=== PATIENT | male | born 1970 | race African-American/Black ===

== ENCOUNTER 2018-12-05 10:09 | Inpatient (IN) | payer MEDICAID ==
[~2018-12-05] VITALS: Ht 180.3 cm; Wt 56.2 kg
[2018-12-05] VITALS (33 sets, daily range): BP systolic 33–154; BP diastolic 17–101
[2018-12-05] MEDS ORDERED: SODIUM CHLORIDE 0.9% 1,000 ML IV ONE ×2 (10:30→12:15)
[2018-12-05 11:51] LABS: MEAN CORPUSCULAR HEMOGLOBIN 18.6 pg (28.0-32.0); MEAN CORPUSCULAR VOLUME 66.8 fL (80.0-94.0); MEAN PLATELET VOLUME 6.9 fl (7.4-10.4); PLATELET 665 x1000/uL (130-400); RED CELL DISTRIBUTION WIDTH 17.4 % (11.6-14.6)
[2018-12-05 11:54] LABS: CHLORIDE 113 mEq/L (98-107)
[2018-12-05 11:56] LABS: HEMATOCRIT. 17.4 % (42.0-52.0); HEMOGLOBIN. 4.8 g/dL (14.0-18.0)
[2018-12-05 11:58] LABS: ETHANOL BLOOD < 10 mg/dL
[2018-12-05 12:15] LABS: CLARITY URINE CLEAR (CLEAR); COLOR URINE YELLOW (YELLOW); KETONES URINE 2+ (NEGATIVE); LEUKOCYTE ESTERASE URINE NEGATIVE (NEGATIVE); NITRITE URINE NEGATIVE (NEGATIVE); OCCULT BLOOD URINE TRACE (NEGATIVE); PROTEIN URINE NEGATIVE (NEGATIVE); SPECIFIC GRAVITY URINE 1.021 (1.005-1.030); UROBILINOGEN URINE 0.2 E.U./dL (0.2-1.0)
[2018-12-05] MEDS ORDERED: INSULIN REGULAR (DRIP) 100 UNITS in SODIUM CHLORIDE 0.9% 100 ML IV ONE (12:15)
[2018-12-05] MEDS ORDERED: SODIUM BICARBONATE 8.4% 1 MEQ/ML 50ML SYR IV ONE (12:15)
[2018-12-05] MEDS ORDERED: CALCIUM GLUCONATE 1,000 MG in DEXT 5% WATER 100 ML IV ONE (12:15)
[2018-12-05] MEDS ORDERED: ALBUTEROL (0.083%) 2.5MG/3ML NEB HHN ONE (12:15)
[2018-12-05 12:25] LABS: PLATELET ESTIMATE INCREASED
[2018-12-05] MEDS ORDERED: INSULIN REGULAR (DRIP) 100 UNITS in SODIUM CHLORIDE 0.9% 99 ML IV ONE (12:30)
[2018-12-05 12:40] LABS: *AMPHETAMINES SCREEN URINE NEGATIVE (NEGATIVE)
[2018-12-05 12:41] LABS: *BARBITURATES SCREEN URINE NEGATIVE (NEGATIVE); *BENZODIAZEPINES SCREEN URINE NEGATIVE (NEGATIVE); *COCAINE SCREEN URINE NEGATIVE (NEGATIVE); CANNABINOID URINE SCREEN NEGATIVE (NEGATIVE); METHADONE URINE SCREEN NEGATIVE (NEGATIVE); OPIATES URINE SCREEN NEGATIVE (NEGATIVE); PHENCYCLIDINE URINE SCREEN NEGATIVE (NEGATIVE)
[2018-12-05] MEDS ORDERED: SODIUM CHLORIDE 0.9% 1,000 ML IV SCH (14:45)
[2018-12-05] MEDS ORDERED: ACETAMINOPHEN 325MG TABLET PO PRN (14:45)
[2018-12-05] MEDS ORDERED: SODIUM BICARBONATE 8.4% 1 MEQ/ML 50ML SYR IV NR ×3 (15:05→17:15)
[2018-12-05 15:21] LABS: BG FRACTION INSPIRED OXYGEN 21; BG HCO3 ACT 5.4 mmol/L (22.0-26.0); BG PCO2 17.6 mmHg (35.0-45.0); BG PH 7.107 (7.350-7.450); BG PO2 152.7 mmHg (75.0-100.0); BG SAMPLE SITE RIGHT BRACHIAL; BG TOTAL HEMOGLOBIN < 4.5 g/dL (12.0-18.0); BG VENT MODE ROOM AIR
[2018-12-05] MEDS ORDERED: LIDOCAINE HCL 1% 20ML VIAL (Pyxis) INJ ONE (15:21)
[2018-12-05] MEDS ORDERED: SODIUM BICARBONATE 4% (2.4MEQ) 5ML VIAL IV ONE (15:21)
[2018-12-05] MEDS ORDERED: NOREPINEPHRINE 8 MG in DEXT 5% WATER 242 ML IV PRN (15:30)
[2018-12-05] MEDS ORDERED: DEXTROSE 50% WATER 50ML SYRINGE IV PRN (15:45)
[2018-12-05] MEDS: INSULIN REGULAR (DRIP) 100 UNITS in SODIUM CHLORIDE 0.9% 99 ML IV SCH ×2 (16:07→21:30)
[2018-12-05 16:31] LABS: PHOSPHORUS 7.3 mg/dL (2.5-4.9)
[2018-12-05] MEDS: BLOOD SUGAR DIAGNOSTIC STRIP TEST SCH ×7 (16:47→23:00)
[2018-12-05] MEDS ORDERED: ALBUTEROL (0.083%) 2.5MG/3ML NEB HHN NR (17:00)
[2018-12-05] MEDS ORDERED: PIPERACILLIN/TAZOBACTAM 3.375 G in DEXT 5% WATER 100 ML IV SCH (17:00)
[2018-12-05] MEDS ORDERED: WATER FOR IRRIGATION STERILE IV SCH (17:15)
[2018-12-05] MEDS ORDERED: SODIUM BICARBONATE IV SCH (17:15)
[2018-12-05] MEDS ORDERED: CALCIUM GLUCONATE 100MG/ML 10ML VIAL IV NR (18:00)
[2018-12-05] MEDS: SODIUM BICARBONATE 150 MEQ in WATER FOR INJECTION,STERILE 1,000 ML IV SCH (18:23)
[2018-12-05] MEDS: PIPERACILLIN/TAZOBACTAM 2.25 G in DEXTROSE 5% WATER 50 ML IV SCH (18:23)
[2018-12-05] MEDS: ONDANSETRON HCL 4MG/2ML INJ IV PRN (18:23)
[2018-12-05] MEDS ORDERED: SODIUM POLYSTYRENE SULFONATE 15 G/60 ML BOT PO NR (18:30)
[2018-12-05] MEDS ORDERED: VANCOMYCIN 1250MG in DEXTROSE 5% WATER 250ML IV SCH (20:00)
[2018-12-05] MEDS: MORPHINE SULFATE 2 MG/ML CPJ (NOT FOR IM USE) IV PRN (22:28)
[2018-12-06] VITALS (52 sets, daily range): BP systolic 64–140; BP diastolic 15–105
[2018-12-06] MEDS: PIPERACILLIN/TAZOBACTAM 2.25 G in DEXTROSE 5% WATER 50 ML IV SCH ×4 (00:27→17:40)
[2018-12-06] MEDS: BLOOD SUGAR DIAGNOSTIC STRIP TEST SCH ×10 (00:27→20:17)
[2018-12-06] MEDS: SODIUM BICARBONATE 150 MEQ in WATER FOR INJECTION,STERILE 1,000 ML IV SCH (00:27)
[2018-12-06] MEDS: INSULIN REGULAR (DRIP) 100 UNITS in SODIUM CHLORIDE 0.9% 99 ML IV SCH (01:42)
[2018-12-06] MEDS: ONDANSETRON HCL 4MG/2ML INJ IV PRN (04:12)
[2018-12-06] MEDS ORDERED: LORAZEPAM 2MG/ML CPJ IV PRN (05:15)
[2018-12-06] MEDS ORDERED: DEXTROSE 50% WATER 50ML SYRINGE IV PRN (05:15)
[2018-12-06] MEDS: MORPHINE SULFATE 2 MG/ML CPJ (NOT FOR IM USE) IV PRN (05:32)
[2018-12-06] MEDS ORDERED: FLUMAZENIL 0.1 MG/ML 5ML VIAL IV ONE ×2 (06:17→06:30)
[2018-12-06 07:28] LABS: HEMATOCRIT. 21.6 % (42.0-52.0); HEMOGLOBIN. 7.1 g/dL (14.0-18.0); MEAN CORPUSCULAR HEMOGLOBIN 22.1 pg (28.0-32.0); MEAN CORPUSCULAR VOLUME 67.5 fL (80.0-94.0); MEAN PLATELET VOLUME 6.7 fl (7.4-10.4); PLATELET 554 x1000/uL (130-400)
[2018-12-06 07:40] LABS: PHOSPHORUS 3.9 mg/dL (2.5-4.9)
[2018-12-06 07:46] LABS: CREATINE KINASE MB FRACTION 19.1 ng/mL (0.5-3.6)
[2018-12-06] MEDS ORDERED: INSULIN LISPRO 100 UNITS/ML SUBCUT SCH (07:50)
[2018-12-06] MEDS ORDERED: BLOOD SUGAR DIAGNOSTIC STRIP TEST SCH (07:50)
[2018-12-06] MEDS ORDERED: PANTOPRAZOLE 40MG DR TABLET PO SCH (07:50)
[2018-12-06] MEDS: INSULIN LISPRO 100 UNITS/ML SUBCUT SCH ×4 (08:00→20:22)
[2018-12-06] MEDS ORDERED: IPRATROPIUM/ALBUTEROL 0.5-3(2.5)MG/3ML NEB HHN PRN (08:15)
[2018-12-06] MEDS: DEXT 5%/0.45% NACL 1000ML 1,000 ML IV SCH ×3 (08:29→20:58)
[2018-12-06] MEDS: FAMOTIDINE 20MG/2ML VIAL IV SCH (08:33)
[2018-12-06 08:49] LABS: BG BASE EXCESS 6.5 mmol/L (-2.0-2.0); BG CARBOXYHEMOGLOBIN 0.7 % (0.5-1.5); BG DEOXYHEMOGLOBIN 19.6 % (0.0-5.0); BG FRACTION INSPIRED OXYGEN 21; BG HCO3 ACT 33.9 mmol/L (22.0-26.0); BG METHEMOGLOBIN 0.1 % (0.0-1.5); BG OXYGEN SATURATION 80.2 % (92.0-98.5); BG OXYHEMOGLOBIN 79.6 % (94.0-97.0); BG PCO2 67.7 mmHg (35.0-45.0); BG PH 7.318 (7.350-7.450); BG PO2 47.5 mmHg (75.0-100.0); BG SAMPLE SITE RIGHT BRACHIAL; BG TOTAL HEMOGLOBIN 8.9 g/dL (12.0-18.0); BG VENT MODE ROOM AIR
[2018-12-06] MEDS ORDERED: NALOXONE HCL 0.4 MG/ML 1ML VIAL IV SCH (09:00)
[2018-12-06] MEDS ORDERED: ASCORBIC ACID 500 MG TABLET PO SCH (09:45)
[2018-12-06] MEDS: ASCORBIC ACID 500 MG TABLET PO SCH ×3 (09:46→18:20)
[2018-12-06 10:07] LABS: NUCLEATED RED BLOOD CELLS 1 /100 WBC
[2018-12-06 10:10] LABS: PLATELET ESTIMATE SLIGHTLY INCREASED
[2018-12-06] MEDS: INSULIN GLARGINE UD 100 UNITS/ML SYR SUBCUT SCH ×2 (11:54→22:05)
[2018-12-06] MEDS: FERROUS SULFATE 325MG TABLET PO SCH ×2 (12:26→18:20)
[2018-12-06 15:00] LABS: BG CARBOXYHEMOGLOBIN 0.3 % (0.5-1.5); BG DEOXYHEMOGLOBIN 2.1 % (0.0-5.0); BG FRACTION INSPIRED OXYGEN 36; BG HCO3 ACT 32.5 mmol/L (22.0-26.0); BG METHEMOGLOBIN 0.1 % (0.0-1.5); BG OXYGEN SATURATION 97.9 % (92.0-98.5); BG OXYHEMOGLOBIN 97.5 % (94.0-97.0); BG PCO2 59.7 mmHg (35.0-45.0); BG PH 7.354 (7.350-7.450); BG PO2 142.7 mmHg (75.0-100.0); BG SAMPLE SITE RIGHT BRACHIAL; BG TOTAL HEMOGLOBIN 8.7 g/dL (12.0-18.0); BG VENT MODE NASAL CANNULA
[2018-12-06] MEDS ORDERED: NALOXONE HCL 0.4 MG/ML 1ML VIAL IV NR (15:00)
[2018-12-06] MEDS: VANCOMYCIN 500 MG PREMIX 100 ML IV SCH (15:34)
[2018-12-06 16:54] LABS: HEMATOCRIT 25.7 % (42.0-52.0); HEMOGLOBIN 8.5 g/dL (14.0-18.0)
[2018-12-07] VITALS (24 sets, daily range): BP systolic 90–118; BP diastolic 49–75
[2018-12-07] MEDS: PIPERACILLIN/TAZOBACTAM 2.25 G in DEXTROSE 5% WATER 50 ML IV SCH ×5 (00:06→23:42)
[2018-12-07] MEDS: BLOOD SUGAR DIAGNOSTIC STRIP TEST SCH ×7 (00:07→23:43)
[2018-12-07] MEDS: VANCOMYCIN 500 MG PREMIX 100 ML IV SCH (03:05)
[2018-12-07] MEDS: INSULIN LISPRO 100 UNITS/ML SUBCUT SCH ×7 (04:00→23:43)
[2018-12-07] MEDS: DEXT 5%/0.45% NACL 1000ML 1,000 ML IV SCH ×2 (05:04→12:54)
[2018-12-07 05:34] LABS: HEMATOCRIT. 24.1 % (42.0-52.0); HEMOGLOBIN. 7.8 g/dL (14.0-18.0); MEAN CORPUSCULAR HEMOGLOBIN 22.8 pg (28.0-32.0); MEAN CORPUSCULAR VOLUME 70.7 fL (80.0-94.0); MEAN PLATELET VOLUME 6.6 fl (7.4-10.4); PLATELET 362 x1000/uL (130-400); RED BLOOD CELL COUNT 3.41 mill/uL (4.7-6.1); RED CELL DISTRIBUTION WIDTH 25.9 % (11.6-14.6)
[2018-12-07] MEDS: FERROUS SULFATE 325MG TABLET PO SCH ×4 (08:04→17:20)
[2018-12-07] MEDS: DEXTROSE 50% WATER 50ML SYRINGE IV PRN ×3 (08:04→17:20)
[2018-12-07] MEDS: ASCORBIC ACID 500 MG TABLET PO SCH ×4 (08:04→17:19)
[2018-12-07] MEDS: FAMOTIDINE 20MG/2ML VIAL IV SCH (08:04)
[2018-12-07] MEDS: INSULIN GLARGINE UD 100 UNITS/ML SYR SUBCUT SCH ×2 (11:28→22:00)
[2018-12-07 13:34] LABS: HEMATOCRIT 26.9 % (42.0-52.0); HEMOGLOBIN 8.7 g/dL (14.0-18.0); MEAN CORPUSCULAR VOLUME 71.3 fL (80.0-94.0); PLATELET 345 x1000/uL (130-400); RED BLOOD CELL COUNT 3.77 mill/uL (4.7-6.1); RED CELL DISTRIBUTION WIDTH 25.5 % (11.6-14.6)
[2018-12-07 13:41] LABS: CHLORIDE 119 mEq/L (98-107)
[2018-12-07 14:13] LABS: PLATELET ESTIMATE NORMAL
[2018-12-07] MEDS: DEXT 10%/0.45% NACL 1,000 ML IV SCH ×2 (14:34→23:43)
[2018-12-07] MEDS: VANCOMYCIN HCL 1000 MG/20 ML ORAL PO SCH ×2 (17:20→23:43)
[2018-12-07] MEDS: VANCOMYCIN 750 MG PREMIX 150 ML IV SCH (17:20)
[2018-12-08] VITALS (28 sets, daily range): BP systolic 87–164; BP diastolic 51–104
[2018-12-08] MEDS: INSULIN LISPRO 100 UNITS/ML SUBCUT SCH ×5 (04:00→20:00)
[2018-12-08] MEDS: BLOOD SUGAR DIAGNOSTIC STRIP TEST SCH ×5 (04:47→20:00)
[2018-12-08 05:12] LABS: HEMATOCRIT. 25.7 % (42.0-52.0); HEMOGLOBIN. 8.3 g/dL (14.0-18.0); MEAN CORPUSCULAR HEMOGLOBIN 22.9 pg (28.0-32.0); MEAN CORPUSCULAR VOLUME 70.9 fL (80.0-94.0); MEAN PLATELET VOLUME 6.6 fl (7.4-10.4); PLATELET 322 x1000/uL (130-400); RED BLOOD CELL COUNT 3.63 mill/uL (4.7-6.1); RED CELL DISTRIBUTION WIDTH 25.8 % (11.6-14.6)
[2018-12-08 05:19] LABS: CHLORIDE 116 mEq/L (98-107)
[2018-12-08 05:26] LABS: PHOSPHORUS 3.9 mg/dL (2.5-4.9)
[2018-12-08] MEDS: VANCOMYCIN HCL 1000 MG/20 ML ORAL PO SCH ×3 (05:28→21:10)
[2018-12-08] MEDS: PIPERACILLIN/TAZOBACTAM 2.25 G in DEXTROSE 5% WATER 50 ML IV SCH ×3 (05:28→17:21)
[2018-12-08 07:29] LABS: NUCLEATED RED BLOOD CELLS 1 /100 WBC; PLATELET ESTIMATE NORMAL
[2018-12-08] MEDS: DEXTROSE 50% WATER 50ML SYRINGE IV PRN ×2 (08:00→21:06)
[2018-12-08] MEDS: ASCORBIC ACID 500 MG TABLET PO SCH ×3 (08:14→17:17)
[2018-12-08] MEDS: FERROUS SULFATE 325MG TABLET PO SCH ×3 (08:14→17:16)
[2018-12-08] MEDS: FAMOTIDINE 20MG/2ML VIAL IV SCH (08:14)
[2018-12-08 08:24] LABS: BG BASE EXCESS 3.6 mmol/L (-2.0-2.0); BG CARBOXYHEMOGLOBIN 0.2 % (0.5-1.5); BG DEOXYHEMOGLOBIN 10.6 % (0.0-5.0); BG FRACTION INSPIRED OXYGEN 36; BG HCO3 ACT 29.3 mmol/L (22.0-26.0); BG METHEMOGLOBIN 0.1 % (0.0-1.5); BG OXYGEN SATURATION 89.4 % (92.0-98.5); BG OXYHEMOGLOBIN 89.1 % (94.0-97.0); BG PCO2 51.1 mmHg (35.0-45.0); BG PH 7.376 (7.350-7.450); BG PO2 58.6 mmHg (75.0-100.0); BG SAMPLE SITE RIGHT RADIAL; BG TOTAL HEMOGLOBIN 7.8 g/dL (12.0-18.0); BG VENT MODE NASAL CANNULA
[2018-12-08] MEDS ORDERED: LIDOCAINE HCL/EPINEPHRINE 1%-EPI 1:100,000 30 ML VIAL INFIL SCH (09:00)
[2018-12-08] MEDS ORDERED: LIDOCAINE HCL/EPINEPHRINE 1%-EPI 1:100,000 20 ML VIAL INFIL SCH (09:10)
[2018-12-08] MEDS: INSULIN GLARGINE UD 100 UNITS/ML SYR SUBCUT SCH ×2 (09:49→22:30)
[2018-12-08] MEDS: DEXT 10%/0.45% NACL 1,000 ML IV SCH ×2 (10:44→21:11)
[2018-12-08] MEDS: VANCOMYCIN 750 MG PREMIX 150 ML IV SCH (12:30)
[2018-12-09] VITALS: BP 162/99
[2018-12-09] MEDS: PIPERACILLIN/TAZOBACTAM 2.25 G in DEXTROSE 5% WATER 50 ML IV SCH ×4 (00:44→18:08)
[2018-12-09] MEDS: VANCOMYCIN HCL 1000 MG/20 ML ORAL PO SCH ×4 (00:44→18:09)
[2018-12-09 04:00] VITALS: BP 134/87
[2018-12-09] MEDS: INSULIN LISPRO 100 UNITS/ML SUBCUT SCH ×6 (04:00→20:00)
[2018-12-09] MEDS: BLOOD SUGAR DIAGNOSTIC STRIP TEST SCH ×6 (04:00→20:00)
[2018-12-09 04:17] LABS: HEMATOCRIT. 24.1 % (42.0-52.0); HEMOGLOBIN. 7.7 g/dL (14.0-18.0); MEAN CORPUSCULAR HEMOGLOBIN 22.7 pg (28.0-32.0); MEAN CORPUSCULAR VOLUME 70.9 fL (80.0-94.0); MEAN PLATELET VOLUME 6.6 fl (7.4-10.4); PLATELET 207 x1000/uL (130-400); RED CELL DISTRIBUTION WIDTH 26.2 % (11.6-14.6)
[2018-12-09 04:23] LABS: CHLORIDE 117 mEq/L (98-107)
[2018-12-09 04:29] LABS: PHOSPHORUS 2.8 mg/dL (2.5-4.9)
[2018-12-09 04:32] LABS: VANCOMYCIN TROUGH 27.1 ug/mL (5.0-10.0)
[2018-12-09] MEDS: DEXT 10%/0.45% NACL 1,000 ML IV SCH (06:21)
[2018-12-09] MEDS: VANCOMYCIN 750 MG PREMIX 150 ML IV SCH (06:27)
[2018-12-09] MEDS: ASCORBIC ACID 500 MG TABLET PO SCH ×3 (07:50→18:09)
[2018-12-09] MEDS: FERROUS SULFATE 325MG TABLET PO SCH ×3 (07:50→18:08)
[2018-12-09 08:00] VITALS: BP 143/87
[2018-12-09] MEDS: INSULIN GLARGINE UD 100 UNITS/ML SYR SUBCUT SCH ×2 (09:01→22:00)
[2018-12-09] MEDS: FAMOTIDINE 20MG/2ML VIAL IV SCH (09:02)
[2018-12-09 10:03] LABS: PLATELET ESTIMATE NORMAL
[2018-12-09 12:00] VITALS: BP 198/90
[2018-12-09] MEDS ORDERED: DEXTROSE 10% WATER 500 ML IV ONE (13:00)
[2018-12-09] MEDS ORDERED: CLONIDINE 0.1MG TABLET PO PRN (14:45)
[2018-12-09] MEDS: AMLODIPINE 10MG TABLET PO SCH (14:59)
[2018-12-09 16:00] VITALS: BP 137/85
[2018-12-09 20:29] VITALS: BP 113/72
[2018-12-10] VITALS: BP 137/85
[2018-12-10] MEDS: VANCOMYCIN HCL 1000 MG/20 ML ORAL PO SCH ×4 (00:40→18:50)
[2018-12-10] MEDS: PIPERACILLIN/TAZOBACTAM 2.25 G in DEXTROSE 5% WATER 50 ML IV SCH ×2 (00:40→05:16)
[2018-12-10] MEDS: BLOOD SUGAR DIAGNOSTIC STRIP TEST SCH ×6 (00:40→20:00)
[2018-12-10] MEDS: INSULIN LISPRO 100 UNITS/ML SUBCUT SCH ×6 (00:48→20:00)
[2018-12-10 04:00] VITALS: BP 134/85
[2018-12-10 06:49] LABS: BASOPHILS % 0.2 % (0.0-2.0); EOSINOPHILS % 1.7 % (0.0-5.0); HEMATOCRIT. 24.2 % (42.0-52.0); HEMOGLOBIN. 7.8 g/dL (14.0-18.0); LYMPHOCYTES % 7.1 % (20.0-50.0); MEAN CORPUSCULAR HEMOGLOBIN 22.9 pg (28.0-32.0); MEAN CORPUSCULAR VOLUME 70.8 fL (80.0-94.0); MEAN PLATELET VOLUME 8.2 fl (7.4-10.4); MONOCYTES % 2.2 % (2.0-8.0); NEUTROPHILS % 88.8 % (40.0-76.0); PLATELET 194 x1000/uL (130-400); RED BLOOD CELL COUNT 3.41 mill/uL (4.7-6.1); RED CELL DISTRIBUTION WIDTH 25.6 % (11.6-14.6)
[2018-12-10 07:08] LABS: PHOSPHORUS 2.6 mg/dL (2.5-4.9)
[2018-12-10] MEDS: FERROUS SULFATE 325MG TABLET PO SCH ×3 (08:45→16:51)
[2018-12-10] MEDS: ASCORBIC ACID 500 MG TABLET PO SCH ×3 (08:45→16:50)
[2018-12-10] MEDS: VANCOMYCIN 750 MG PREMIX 150 ML IV SCH (08:46)
[2018-12-10] MEDS: AMLODIPINE 10MG TABLET PO SCH (08:46)
[2018-12-10] MEDS: FAMOTIDINE 20MG/2ML VIAL IV SCH (08:46)
[2018-12-10 08:50] VITALS: BP 129/85
[2018-12-10] MEDS: INSULIN GLARGINE UD 100 UNITS/ML SYR SUBCUT SCH ×2 (10:00→22:40)
[2018-12-10 12:33] VITALS: BP 125/81
[2018-12-10 16:10] VITALS: BP 128/90
[2018-12-10] MEDS: METRONIDAZOLE 500 MG PREMIX 100 ML IV SCH (16:51)
[2018-12-10 20:21] VITALS: BP 99/66
[2018-12-11] MEDS: BLOOD SUGAR DIAGNOSTIC STRIP TEST SCH ×6 (00:05→20:00)
[2018-12-11] MEDS: VANCOMYCIN HCL 1000 MG/20 ML ORAL PO SCH ×4 (00:05→18:12)
[2018-12-11 00:15] VITALS: BP 111/64
[2018-12-11] MEDS: INSULIN LISPRO 100 UNITS/ML SUBCUT SCH ×6 (00:21→22:02)
[2018-12-11] MEDS: METRONIDAZOLE 500 MG PREMIX 100 ML IV SCH ×3 (02:50→18:05)
[2018-12-11 04:00] VITALS: BP 109/68
[2018-12-11 07:53] LABS: BASOPHILS % 0.4 % (0.0-2.0); EOSINOPHILS % 2.4 % (0.0-5.0); HEMATOCRIT. 22.4 % (42.0-52.0); HEMOGLOBIN. 7.1 g/dL (14.0-18.0); LYMPHOCYTES % 12.2 % (20.0-50.0); MEAN CORPUSCULAR HEMOGLOBIN 22.5 pg (28.0-32.0); MEAN CORPUSCULAR VOLUME 70.7 fL (80.0-94.0); MEAN PLATELET VOLUME 8.2 fl (7.4-10.4); MONOCYTES % 6.8 % (2.0-8.0); NEUTROPHILS % 78.2 % (40.0-76.0); PLATELET 187 x1000/uL (130-400); RED BLOOD CELL COUNT 3.17 mill/uL (4.7-6.1); RED CELL DISTRIBUTION WIDTH 26.6 % (11.6-14.6)
[2018-12-11 08:06] LABS: PHOSPHORUS 2.3 mg/dL (2.5-4.9)
[2018-12-11 08:14] VITALS: BP 125/79
[2018-12-11] MEDS: FERROUS SULFATE 325MG TABLET PO SCH ×3 (10:42→17:54)
[2018-12-11] MEDS: ASCORBIC ACID 500 MG TABLET PO SCH ×3 (10:43→17:54)
[2018-12-11] MEDS: FAMOTIDINE 20MG/2ML VIAL IV SCH (10:43)
[2018-12-11] MEDS: AMLODIPINE 10MG TABLET PO SCH (10:44)
[2018-12-11] MEDS: INSULIN GLARGINE UD 100 UNITS/ML SYR SUBCUT SCH ×2 (10:46→22:01)
[2018-12-11] MEDS: VANCOMYCIN 750 MG PREMIX 150 ML IV SCH (10:46)
[2018-12-11 12:12] VITALS: BP 138/90
[2018-12-11] MEDS ORDERED: POTASSIUM PHOS,M-BASIC-D-BASIC 15 MMOL in DEXT 5% WATER 245 ML IV SCH (15:30)
[2018-12-11 16:00] VITALS: BP 117/69
[2018-12-11 20:52] VITALS: BP 138/81
[2018-12-11] MEDS: PANTOPRAZOLE SODIUM 40 MG/VIAL IV SCH (22:00)
[2018-12-12] VITALS (7 sets, daily range): BP systolic 114–138; BP diastolic 69–83
[2018-12-12] MEDS: VANCOMYCIN HCL 1000 MG/20 ML ORAL PO SCH ×4 (02:56→22:06)
[2018-12-12] MEDS: DEXTROSE 50% WATER 50ML SYRINGE IV PRN (04:56)
[2018-12-12] MEDS: METRONIDAZOLE 500 MG PREMIX 100 ML IV SCH ×3 (05:25→22:05)
[2018-12-12] MEDS: INSULIN LISPRO 100 UNITS/ML SUBCUT SCH ×5 (08:00→22:06)
[2018-12-12] MEDS: AMLODIPINE 10MG TABLET PO SCH (08:07)
[2018-12-12] MEDS: FERROUS SULFATE 325MG TABLET PO SCH ×3 (08:08→17:09)
[2018-12-12] MEDS: PANTOPRAZOLE SODIUM 40 MG/VIAL IV SCH (08:08)
[2018-12-12] MEDS: ASCORBIC ACID 500 MG TABLET PO SCH ×3 (08:08→17:09)
[2018-12-12] MEDS: VANCOMYCIN 750 MG PREMIX 150 ML IV SCH (08:08)
[2018-12-12] MEDS: BLOOD SUGAR DIAGNOSTIC STRIP TEST SCH ×5 (08:21→20:00)
[2018-12-12] MEDS: INSULIN GLARGINE UD 100 UNITS/ML SYR SUBCUT SCH ×2 (10:00→22:07)
[2018-12-12 10:42] LABS: BASOPHILS % 0.2 % (0.0-2.0); EOSINOPHILS % 0.8 % (0.0-5.0); HEMATOCRIT. 22.2 % (42.0-52.0); HEMOGLOBIN. 7.3 g/dL (14.0-18.0); LYMPHOCYTES % 9.2 % (20.0-50.0); MEAN CORPUSCULAR HEMOGLOBIN 23.6 pg (28.0-32.0); MEAN CORPUSCULAR VOLUME 71.8 fL (80.0-94.0); MONOCYTES % 7.3 % (2.0-8.0); NEUTROPHILS % 82.5 % (40.0-76.0); RED BLOOD CELL COUNT 3.09 mill/uL (4.7-6.1); RED CELL DISTRIBUTION WIDTH 26.3 % (11.6-14.6)
[2018-12-12 10:53] LABS: PHOSPHORUS 2.8 mg/dL (2.5-4.9)
[2018-12-12 11:14] LABS: INR 1.4; PARTIAL THROMBOPLASTIN TIME 33.8 sec (23.4-31.0); PROTHROMBIN TIME 14.4 sec (9.6-11.0)
[2018-12-12 13:56] LABS: MEAN PLATELET VOLUME 7.9 fl (7.4-10.4); PLATELET 162 x1000/uL (130-400)
[2018-12-12] MEDS ORDERED: MIDAZOLAM HCL 5 MG/5 ML VIAL ONE (16:56)
[2018-12-12] MEDS ORDERED: SIMETHICONE 40 MG/0.6 ML 30ML ONE (16:56)
[2018-12-12] MEDS ORDERED: FENTANYL CITRATE/PF 50MCG/ML 2ML VIAL ONE (16:56)
[2018-12-12] MEDS ORDERED: MIDAZOLAM HCL 5 MG/5 ML VIAL IV PRN (17:16)
[2018-12-12] MEDS ORDERED: FENTANYL CITRATE/PF 50MCG/ML 2ML VIAL IV PRN (17:17)
[2018-12-12] MEDS ORDERED: FLUCONAZOLE 100MG TABLET PO NR (18:00)
[2018-12-12] MEDS ORDERED: METOCLOPRAMIDE 10MG/10 ML UDC PO SCH (21:00)
[2018-12-13] MEDS ORDERED: FLUCONAZOLE 100MG TABLET PO SCH (09:00)
== END 2018-12-13 01:40 | DRG 710 ==
LOC: ER 10:18 → EDBD 10:18 → EDBEDREQSVC 12:13 → CVICU 12:34 → EDBEDREQ 12:54 → ENRESERV 13:17 → CVICU 15:39 → 6WST 12-08 17:04
PROVIDERS: ADMIT Internal Medicine; ATTEND Internal Medicine
PROC: 30233N1 Transfusion of Nonautologous Red Blood Cells into Peripheral Vein, Percutaneous Approach (ICD-10-PCS; 2018-12-05)
PROC: 05H533Z Insertion of Infusion Device into Right Subclavian Vein, Percutaneous Approach (ICD-10-PCS; 2018-12-05)
PROC: B546ZZA Ultrasonography of Right Subclavian Vein, Guidance (ICD-10-PCS; 2018-12-05)
PROC: 02HV33Z Insertion of Infusion Device into Superior Vena Cava, Percutaneous Approach (ICD-10-PCS; 2018-12-06)
PROC: 0KBT0ZZ Excision of Left Lower Leg Muscle, Open Approach (ICD-10-PCS; principal; 2018-12-08)
PROC: 0KBS0ZZ Excision of Right Lower Leg Muscle, Open Approach (ICD-10-PCS; 2018-12-08)
PROC: 0DB68ZX Excision of Stomach, Via Natural or Artificial Opening Endoscopic, Diagnostic (ICD-10-PCS; 2018-12-12)
PROC: 0DB58ZX Excision of Esophagus, Via Natural or Artificial Opening Endoscopic, Diagnostic (ICD-10-PCS; 2018-12-12)
DX: A41.02 Sepsis due to Methicillin resistant Staphylococcus aureus (principal); R65.21 Severe sepsis with septic shock; G93.41 Metabolic encephalopathy; E43 Unspecified severe protein-calorie malnutrition; E11.10 Type 2 diabetes mellitus with ketoacidosis without coma; N17.9 Acute kidney failure, unspecified; A04.72 Enterocolitis due to Clostridium difficile, not specified as recurrent; N18.3 Chronic kidney disease, stage 3 (moderate); K31.84 Gastroparesis; E87.0 Hyperosmolality and hypernatremia; E87.5 Hyperkalemia; E11.43 Type 2 diabetes mellitus with diabetic autonomic (poly)neuropathy; E11.22 Type 2 diabetes mellitus with diabetic chronic kidney disease; E11.628 Type 2 diabetes mellitus with other skin complications; B37.81 Candidal esophagitis; D50.9 Iron deficiency anemia, unspecified; E87.8 Other disorders of electrolyte and fluid balance, not elsewhere classified; E11.649 Type 2 diabetes mellitus with hypoglycemia without coma; I12.9 Hypertensive chronic kidney disease with stage 1 through stage 4 chronic kidney disease, or unspecified chronic kidney disease; K29.70 Gastritis, unspecified, without bleeding; K64.9 Unspecified hemorrhoids; S01.01XA Laceration without foreign body of scalp, initial encounter; S81.811A Laceration without foreign body, right lower leg, initial encounter; Z82.49 Family history of ischemic heart disease and other diseases of the circulatory system; Z83.3 Family history of diabetes mellitus; Z91.19 Patient's noncompliance with other medical treatment and regimen; Z68.1 Body mass index [BMI] 19.9 or less, adult
CPT/HCPCS: 36415; 36600; 70551; 71045; 73560; 76770; 76937; 80048; 80076; 80202; 80305; 80320; 81003; 82140; 82270; 82375; 82550; 82553; 82728; 82805; 82962; 83036; 83540; 83550; 83605; 83735; 84100; 84134; 84145; 84484; 85014; 85018; 85027; 86850; 86900; 86920; 87077; 87493; 88305; 88312; 88313; 92610; 93005; 93306; 93970; 94640; 99285; C1725; C9113; J0610; J1815; J2060; J2250; J2270; J2310; J2405; J2543; J3010; J3370; J3490; J7030; J7040; J7050; J7060; J7611; J7620; J8597; P9021; A4315; G0480

== ENCOUNTER 2018-12-13 03:08 | Inpatient (IN) | payer MEDICAID ==
[2018-12-13] VITALS (24 sets, daily range): BP systolic 66–120; BP diastolic 35–76
[~2018-12-13] VITALS: Ht 172.7 cm; Wt 70.5 kg
[2018-12-13] MEDS ORDERED: PIPERACILLIN/TAZ 3.375G PREMIX 50 ML IV ONE (05:15)
[2018-12-13 05:54] LABS: BG BASE EXCESS -9.2 mmol/L (-2.0-2.0); BG CARBOXYHEMOGLOBIN 0.1 % (0.5-1.5); BG DEOXYHEMOGLOBIN 14.1 % (0.0-5.0); BG FRACTION INSPIRED OXYGEN 40; BG HCO3 ACT 17.4 mmol/L (22.0-26.0); BG METHEMOGLOBIN 0.1 % (0.0-1.5); BG OXYGEN SATURATION 85.9 % (92.0-98.5); BG OXYHEMOGLOBIN 85.7 % (94.0-97.0); BG PCO2 41.1 mmHg (35.0-45.0); BG PH 7.245 (7.350-7.450); BG PO2 55.6 mmHg (75.0-100.0); BG SAMPLE SITE RIGHT RADIAL; BG TOTAL HEMOGLOBIN 9.1 g/dL (12.0-18.0); BG VENT MODE MASK - SIMPLE
[2018-12-13 06:57] LABS: MEAN CORPUSCULAR HEMOGLOBIN 22.9 pg (28.0-32.0); MEAN PLATELET VOLUME 8.3 fl (7.4-10.4); PLATELET 170 x1000/uL (130-400); RED BLOOD CELL COUNT 3.07 mill/uL (4.7-6.1); RED CELL DISTRIBUTION WIDTH 26.2 % (11.6-14.6)
[2018-12-13 07:11] LABS: HEMATOCRIT. 21.8 % (42.0-52.0)
[2018-12-13] MEDS: BLOOD SUGAR DIAGNOSTIC STRIP TEST SCH ×3 (07:30→17:34)
[2018-12-13] MEDS ORDERED: DEXTROSE 50% WATER 50ML SYRINGE IV PRN ×2 (08:15)
[2018-12-13 08:38] LABS: PLATELET ESTIMATE NORMAL
[2018-12-13] MEDS ORDERED: IPRATROPIUM/ALBUTEROL 0.5-3(2.5)MG/3ML NEB HHN SCH (09:00)
[2018-12-13] MEDS ORDERED: ACETAMINOPHEN 325MG TABLET PO PRN ×2 (09:15→19:30)
[2018-12-13] MEDS ORDERED: HYDROCODONE/ACETAMINOPHEN 5/325MG TABLET PO PRN (09:15)
[2018-12-13] MEDS ORDERED: ONDANSETRON 4MG/5ML UDC PO NR (09:15)
[2018-12-13] MEDS: INSULIN LISPRO 100 UNITS/ML SUBCUT SCH ×3 (09:51→17:33)
[2018-12-13] MEDS ORDERED: SODIUM CHLORIDE 0.9% 500 ML IV ONE (10:45)
[2018-12-13] MEDS ORDERED: SODIUM CHLORIDE 10% FOR INH 15ML VIAL NEB INH SCH (11:00)
[2018-12-13] MEDS ORDERED: VANCOMYCIN HCL 1 GM/VIAL PO SCH (12:00)
[2018-12-13] MEDS: MIDODRINE HCL 5MG TABLET PO SCH ×3 (12:16→17:32)
[2018-12-13] MEDS: VANCOMYCIN HCL 1000 MG/20 ML ORAL PO SCH ×2 (12:17→17:39)
[2018-12-13] MEDS: PIPERACILLIN/TAZOBACTAM 3.375 G in DEXT 5% WATER 100 ML IV SCH ×2 (12:17→22:09)
[2018-12-13] MEDS: FLUCONAZOLE 100MG TABLET PO SCH (12:17)
[2018-12-13] MEDS ORDERED: BLOOD SUGAR DIAGNOSTIC STRIP TEST SCH (12:30)
[2018-12-13] MEDS ORDERED: INSULIN LISPRO 100 UNITS/ML SUBCUT SCH (13:00)
[2018-12-13] MEDS ORDERED: VANCOMYCIN 1500MG in DEXTROSE 5% WATER 250ML IV SCH (13:00)
[2018-12-13 13:01] LABS: BG BASE EXCESS -9.3 mmol/L (-2.0-2.0); BG CARBOXYHEMOGLOBIN 0.4 % (0.5-1.5); BG DEOXYHEMOGLOBIN 18.4 % (0.0-5.0); BG FRACTION INSPIRED OXYGEN 40; BG HCO3 ACT 17.7 mmol/L (22.0-26.0); BG METHEMOGLOBIN 0.3 % (0.0-1.5); BG OXYGEN SATURATION 81.5 % (92.0-98.5); BG OXYHEMOGLOBIN 80.9 % (94.0-97.0); BG PCO2 44.4 mmHg (35.0-45.0); BG PH 7.218 (7.350-7.450); BG PO2 49.7 mmHg (75.0-100.0); BG SAMPLE SITE RIGHT BRACHIAL; BG TOTAL HEMOGLOBIN 6.7 g/dL (12.0-18.0); BG VENT MODE NASAL CANNULA
[2018-12-13] MEDS ORDERED: SODIUM BICARBONATE 8.4% 1 MEQ/ML 50ML SYR IV NR ×2 (13:30→20:45)
[2018-12-13] MEDS ORDERED: VANCOMYCIN 750 MG PREMIX 150 ML IV SCH (14:00)
[2018-12-13] MEDS ORDERED: PIPERACILLIN/TAZ 3.375G PREMIX 50 ML IV SCH (14:00)
[2018-12-13 14:54] LABS: HEPATITIS B SURFACE ANTIGEN NEGATIVE
[2018-12-13] MEDS: IPRATROPIUM/ALBUTEROL 0.5-3(2.5)MG/3ML NEB HHN SCH ×2 (15:07→19:53)
[2018-12-13] MEDS: ACETYLCYSTEINE 100MG/ML 10% VIAL 4ML INH SCH (15:08)
[2018-12-13] MEDS: METRONIDAZOLE 500 MG PREMIX 100 ML IV SCH ×2 (15:23→22:12)
[2018-12-13] MEDS: METOCLOPRAMIDE HCL 10MG TABLET PO SCH ×2 (15:23→17:38)
[2018-12-13 15:24] LABS: HEPATITIS A AB IGM NEGATIVE (NEGATIVE)
[2018-12-13 17:19] LABS: BG BASE EXCESS -10.9 mmol/L (-2.0-2.0); BG BILEVEL POS AIRWAY PRESSURE 18/8; BG CARBOXYHEMOGLOBIN 0.9 % (0.5-1.5); BG DEOXYHEMOGLOBIN 5.8 % (0.0-5.0); BG FRACTION INSPIRED OXYGEN 50; BG HCO3 ACT 15.1 mmol/L (22.0-26.0); BG METHEMOGLOBIN 0.2 % (0.0-1.5); BG OXYGEN SATURATION 94.1 % (92.0-98.5); BG OXYHEMOGLOBIN 93.1 % (94.0-97.0); BG PCO2 34.4 mmHg (35.0-45.0); BG PH 7.261 (7.350-7.450); BG SAMPLE SITE RIGHT BRACHIAL; BG VENT MODE MASK - BIPAP; BG VENT RATE 16 set
[2018-12-13] MEDS ORDERED: SUCCINYLCHOLINE CHLORIDE 200MG/10ML IV ONE (18:30)
[2018-12-13] MEDS ORDERED: ETOMIDATE 2MG/ML 10ML VIAL IV ONE (18:30)
[2018-12-13] MEDS ORDERED: ONDANSETRON HCL 4MG/2ML INJ IV PRN (19:30)
[2018-12-13 20:01] LABS: BG BASE EXCESS -12.4 mmol/L (-2.0-2.0); BG CARBOXYHEMOGLOBIN 0.2 % (0.5-1.5); BG DEOXYHEMOGLOBIN 2.7 % (0.0-5.0); BG FRACTION INSPIRED OXYGEN 100; BG HCO3 ACT 14.3 mmol/L (22.0-26.0); BG OXYGEN SATURATION 97.3 % (92.0-98.5); BG OXYHEMOGLOBIN 96.1 % (94.0-97.0); BG PCO2 36.3 mmHg (35.0-45.0); BG PH 7.214 (7.350-7.450); BG PO2 112.5 mmHg (75.0-100.0); BG SAMPLE SITE LEFT RADIAL; BG TIDAL VOLUME(mL) 550 mL; BG TOTAL HEMOGLOBIN 7.1 g/dL (12.0-18.0); BG VENT MODE VENT - A/C; BG VENT RATE 18 set
[2018-12-13] MEDS ORDERED: NOREPINEPHRINE 16 MG in DEXT 5% WATER 484 ML IV STA (21:35)
[2018-12-13] MEDS ORDERED: NOREPINEPHRINE 16 MG in DEXT 5% WATER 484 ML IV PRN (21:45)
[2018-12-13] MEDS ORDERED: SODIUM CHLORIDE 0.9% 250 ML IV NR (22:00)
[2018-12-13] MEDS: DEXT 5%/0.45% NACL 1000ML 1,000 ML IV SCH (22:09)
[2018-12-13] MEDS: PROPOFOL 10MG/ML 100ML 100 ML IV PRN (22:15)
[2018-12-14] VITALS (86 sets, daily range): BP systolic 82–181; BP diastolic 48–108
[2018-12-14] MEDS: IPRATROPIUM/ALBUTEROL 0.5-3(2.5)MG/3ML NEB HHN SCH ×6 (00:16→20:00)
[2018-12-14] MEDS: ACETYLCYSTEINE 100MG/ML 10% VIAL 4ML INH SCH ×3 (00:16→15:43)
[2018-12-14] MEDS: INSULIN LISPRO 100 UNITS/ML SUBCUT SCH ×4 (00:31→17:53)
[2018-12-14] MEDS: BLOOD SUGAR DIAGNOSTIC STRIP TEST SCH ×4 (00:33→17:52)
[2018-12-14] MEDS: VANCOMYCIN HCL 1000 MG/20 ML ORAL PO SCH ×4 (00:33→17:31)
[2018-12-14] MEDS: PROPOFOL 10MG/ML 100ML 100 ML IV PRN ×2 (05:34→10:35)
[2018-12-14] MEDS: PIPERACILLIN/TAZOBACTAM 3.375 G in DEXT 5% WATER 100 ML IV SCH (05:34)
[2018-12-14] MEDS: METRONIDAZOLE 500 MG PREMIX 100 ML IV SCH ×3 (05:38→22:21)
[2018-12-14 05:40] LABS: PHOSPHORUS 4.2 mg/dL (2.5-4.9)
[2018-12-14] MEDS: DEXT 5%/0.45% NACL 1000ML 1,000 ML IV SCH (06:23)
[2018-12-14 07:55] LABS: MEAN CORPUSCULAR HEMOGLOBIN 22.5 pg (28.0-32.0); MEAN PLATELET VOLUME 8.1 fl (7.4-10.4); PLATELET 166 x1000/uL (130-400); RED BLOOD CELL COUNT 2.65 mill/uL (4.7-6.1); RED CELL DISTRIBUTION WIDTH 26.6 % (11.6-14.6)
[2018-12-14 08:02] LABS: HEMATOCRIT. 18.5 % (42.0-52.0)
[2018-12-14] MEDS: FLUCONAZOLE 100MG TABLET PO SCH (08:06)
[2018-12-14] MEDS: MIDODRINE HCL 5MG TABLET PO SCH ×3 (08:06→17:13)
[2018-12-14] MEDS: METOCLOPRAMIDE HCL 10MG TABLET PO SCH ×3 (08:06→17:12)
[2018-12-14] MEDS ORDERED: VANCOMYCIN 750 MG PREMIX 150 ML IV SCH (09:00)
[2018-12-14 09:19] LABS: BG CARBOXYHEMOGLOBIN 1.4 % (0.5-1.5); BG DEOXYHEMOGLOBIN 0.7 % (0.0-5.0); BG FRACTION INSPIRED OXYGEN 90; BG HCO3 ACT 17.6 mmol/L (22.0-26.0); BG METHEMOGLOBIN 0.1 % (0.0-1.5); BG OXYGEN SATURATION 99.3 % (92.0-98.5); BG OXYHEMOGLOBIN 97.8 % (94.0-97.0); BG PCO2 30.7 mmHg (35.0-45.0); BG PH 7.377 (7.350-7.450); BG PO2 138.2 mmHg (75.0-100.0); BG SAMPLE SITE RIGHT BRACHIAL; BG TIDAL VOLUME(mL) 550 mL; BG TOTAL HEMOGLOBIN 5.3 g/dL (12.0-18.0); BG VENT MODE VENT - A/C; BG VENT RATE 22 set
[2018-12-14 09:28] LABS: PLATELET ESTIMATE NORMAL
[2018-12-14] MEDS ORDERED: MEROPENEM 500 MG in SODIUM CHLORIDE 0.9% 50 ML IV SCH (09:30)
[2018-12-14 09:58] LABS: CLARITY URINE TURBID (CLEAR); COLOR URINE YELLOW (YELLOW); KETONES URINE NEGATIVE (NEGATIVE); LEUKOCYTE ESTERASE URINE 1+ (NEGATIVE); NITRITE URINE NEGATIVE (NEGATIVE); OCCULT BLOOD URINE 3+ (NEGATIVE); PROTEIN URINE 2+ (NEGATIVE); SPECIFIC GRAVITY URINE 1.019 (1.005-1.030); UROBILINOGEN URINE 0.2 E.U./dL (0.2-1.0)
[2018-12-14] MEDS: PANTOPRAZOLE SODIUM 40 MG/VIAL IV SCH (11:01)
[2018-12-14] MEDS: SODIUM BICARBONATE 100 MEQ in DEXTROSE 5% WATER 1,000 ML IV SCH ×2 (11:52→22:24)
[2018-12-14] MEDS ORDERED: VANCOMYCIN HCL 1 GM/VIAL NG SCH (12:00)
[2018-12-14] MEDS: MEROPENEM 500MG in NORMAL SALINE 50ML IV SCH ×2 (12:07→21:42)
[2018-12-14] MEDS: INSULIN GLARGINE UD 100 UNITS/ML SYR SUBCUT SCH ×2 (12:17→22:38)
[2018-12-14] MEDS: FENTANYL CITRATE/PF 500 MCG in SODIUM CHLORIDE 0.9% 40 ML IV PRN ×3 (12:27→23:58)
[2018-12-14] MEDS: VANCOMYCIN 500 MG PREMIX 100 ML IV SCH (15:27)
[2018-12-14 21:12] LABS: HEMATOCRIT 25.1 % (42.0-52.0); HEMOGLOBIN 8.2 g/dL (14.0-18.0)
[2018-12-14 21:18] LABS: INR 1.9; PROTHROMBIN TIME 19.1 sec (9.6-11.0)
[2018-12-15] VITALS (72 sets, daily range): BP systolic 94–161; BP diastolic 62–103
[2018-12-15] MEDS: BLOOD SUGAR DIAGNOSTIC STRIP TEST SCH ×4 (00:03→18:08)
[2018-12-15] MEDS: VANCOMYCIN HCL 1000 MG/20 ML ORAL PO SCH ×4 (00:18→18:08)
[2018-12-15] MEDS: ACETYLCYSTEINE 100MG/ML 10% VIAL 4ML INH SCH ×3 (00:21→15:57)
[2018-12-15] MEDS: IPRATROPIUM/ALBUTEROL 0.5-3(2.5)MG/3ML NEB HHN SCH ×6 (00:21→20:18)
[2018-12-15] MEDS: INSULIN LISPRO 100 UNITS/ML SUBCUT SCH ×4 (05:22→18:00)
[2018-12-15] MEDS: METRONIDAZOLE 500 MG PREMIX 100 ML IV SCH ×3 (05:28→22:01)
[2018-12-15 06:38] LABS: BASOPHILS % 0.5 % (0.0-2.0); EOSINOPHILS % 1.7 % (0.0-5.0); HEMATOCRIT. 23.8 % (42.0-52.0); HEMOGLOBIN. 8.1 g/dL (14.0-18.0); LYMPHOCYTES % 8.1 % (20.0-50.0); MEAN CORPUSCULAR HEMOGLOBIN 24.6 pg (28.0-32.0); MEAN CORPUSCULAR VOLUME 72.4 fL (80.0-94.0); MEAN PLATELET VOLUME 8.3 fl (7.4-10.4); MONOCYTES % 1.2 % (2.0-8.0); NEUTROPHILS % 88.5 % (40.0-76.0); PLATELET 118 x1000/uL (130-400); RED BLOOD CELL COUNT 3.29 mill/uL (4.7-6.1); RED CELL DISTRIBUTION WIDTH 27.1 % (11.6-14.6)
[2018-12-15 07:12] LABS: HIV SCREEN 4G Non Reactive (Non Reactive)
[2018-12-15 07:42] LABS: BG BASE EXCESS -6.5 mmol/L (-2.0-2.0); BG CARBOXYHEMOGLOBIN 0.1 % (0.5-1.5); BG DEOXYHEMOGLOBIN 5.3 % (0.0-5.0); BG FRACTION INSPIRED OXYGEN 60; BG METHEMOGLOBIN 0.2 % (0.0-1.5); BG OXYGEN SATURATION 94.7 % (92.0-98.5); BG OXYHEMOGLOBIN 94.4 % (94.0-97.0); BG PCO2 37.5 mmHg (35.0-45.0); BG PH 7.322 (7.350-7.450); BG PO2 78.8 mmHg (75.0-100.0); BG SAMPLE SITE RIGHT BRACHIAL; BG TIDAL VOLUME(mL) 550 mL; BG TOTAL HEMOGLOBIN 8.5 g/dL (12.0-18.0); BG VENT MODE VENT - A/C; BG VENT RATE 22 set
[2018-12-15] MEDS ORDERED: TETANUS, DIPHTHERIA, PERTUSSIS VAC/PF 0.5ML (>7YR OLD) IM ONE (08:00)
[2018-12-15] MEDS ORDERED: INFLUENZA VIRUS VACCINE(AFLURIA) 0.5ML SYR IM ONE (08:00)
[2018-12-15] MEDS: PANTOPRAZOLE SODIUM 40 MG/VIAL IV SCH (08:16)
[2018-12-15] MEDS: MEROPENEM 500MG in NORMAL SALINE 50ML IV SCH ×2 (08:16→21:40)
[2018-12-15] MEDS: METOCLOPRAMIDE HCL 10MG TABLET PO SCH ×3 (08:17→18:02)
[2018-12-15] MEDS: FLUCONAZOLE 100MG TABLET PO SCH (08:17)
[2018-12-15] MEDS: FENTANYL CITRATE/PF 500 MCG in SODIUM CHLORIDE 0.9% 40 ML IV PRN ×2 (08:19→16:08)
[2018-12-15 08:31] LABS: PLATELET ESTIMATE SLIGHTLY DECREASED
[2018-12-15 09:19] LABS: PHOSPHORUS 4.9 mg/dL (2.5-4.9)
[2018-12-15] MEDS: MIDODRINE HCL 5MG TABLET PO SCH ×3 (10:16→18:02)
[2018-12-15] MEDS: CITRIC ACID/SODIUM CITRATE SOLN 15ML UDC NG SCH ×3 (10:16→18:01)
[2018-12-15] MEDS: INSULIN GLARGINE UD 100 UNITS/ML SYR SUBCUT SCH ×2 (10:16→22:03)
[2018-12-15] MEDS: SODIUM BICARBONATE 100 MEQ in DEXTROSE 5% WATER 1,000 ML IV SCH (10:22)
[2018-12-15] MEDS ORDERED: MAGNESIUM 2 G PREMIX 50 ML IV SCH (11:00)
[2018-12-15] MEDS: VANCOMYCIN 500 MG PREMIX 100 ML IV SCH (15:59)
[2018-12-15] MEDS ORDERED: FENTANYL CITRATE/PF 1,000 MCG in SODIUM CHLORIDE 0.9% 80 ML IV PRN (23:15)
[2018-12-15] MEDS ORDERED: FENTANYL CITRATE IV PRN (23:15)
[2018-12-15] MEDS ORDERED: SODIUM CHLORIDE 0.9% IV PRN (23:15)
[2018-12-16] VITALS (72 sets, daily range): BP systolic 107–168; BP diastolic 56–97
[2018-12-16] MEDS: ACETYLCYSTEINE 100MG/ML 10% VIAL 4ML INH SCH ×3 (00:29→16:27)
[2018-12-16] MEDS: IPRATROPIUM/ALBUTEROL 0.5-3(2.5)MG/3ML NEB HHN SCH ×6 (00:29→20:30)
[2018-12-16] MEDS: BLOOD SUGAR DIAGNOSTIC STRIP TEST SCH ×4 (00:34→18:02)
[2018-12-16] MEDS ORDERED: DEXTROSE 50% WATER 50ML SYRINGE IV SCH (01:00)
[2018-12-16] MEDS: VANCOMYCIN HCL 1000 MG/20 ML ORAL PO SCH ×4 (01:01→18:02)
[2018-12-16 05:20] LABS: HEMATOCRIT. 24.6 % (42.0-52.0); HEMOGLOBIN. 8.5 g/dL (14.0-18.0); MEAN CORPUSCULAR HEMOGLOBIN 24.5 pg (28.0-32.0); MEAN CORPUSCULAR VOLUME 71.5 fL (80.0-94.0); MEAN PLATELET VOLUME 8.3 fl (7.4-10.4); PLATELET 136 x1000/uL (130-400); RED BLOOD CELL COUNT 3.45 mill/uL (4.7-6.1); RED CELL DISTRIBUTION WIDTH 29.1 % (11.6-14.6)
[2018-12-16 05:38] LABS: PHOSPHORUS 4.9 mg/dL (2.5-4.9)
[2018-12-16] MEDS: INSULIN LISPRO 100 UNITS/ML SUBCUT SCH ×4 (06:00→18:02)
[2018-12-16] MEDS: METRONIDAZOLE 500 MG PREMIX 100 ML IV SCH ×3 (06:20→21:51)
[2018-12-16] MEDS: CITRIC ACID/SODIUM CITRATE SOLN 15ML UDC NG SCH (08:05)
[2018-12-16] MEDS: MEROPENEM 500MG in NORMAL SALINE 50ML IV SCH ×2 (08:05→21:16)
[2018-12-16] MEDS: PANTOPRAZOLE SODIUM 40 MG/VIAL IV SCH (08:06)
[2018-12-16] MEDS: FLUCONAZOLE 100MG TABLET PO SCH (08:06)
[2018-12-16] MEDS: METOCLOPRAMIDE HCL 10MG TABLET PO SCH ×3 (08:06→18:02)
[2018-12-16] MEDS: MIDODRINE HCL 5MG TABLET PO SCH (08:07)
[2018-12-16 09:29] LABS: BG BASE EXCESS -3.4 mmol/L (-2.0-2.0); BG CARBOXYHEMOGLOBIN 0.6 % (0.5-1.5); BG DEOXYHEMOGLOBIN 2.7 % (0.0-5.0); BG FRACTION INSPIRED OXYGEN 60; BG HCO3 ACT 20.6 mmol/L (22.0-26.0); BG METHEMOGLOBIN 0.5 % (0.0-1.5); BG OXYGEN SATURATION 97.3 % (92.0-98.5); BG OXYHEMOGLOBIN 96.2 % (94.0-97.0); BG PCO2 32.5 mmHg (35.0-45.0); BG PH 7.419 (7.350-7.450); BG PO2 104.9 mmHg (75.0-100.0); BG SAMPLE SITE RIGHT BRACHIAL; BG TIDAL VOLUME(mL) 550 mL; BG TOTAL HEMOGLOBIN 8.2 g/dL (12.0-18.0); BG VENT MODE VENT - A/C; BG VENT RATE 22 set
[2018-12-16 09:50] LABS: PLATELET ESTIMATE NORMAL
[2018-12-16] MEDS: SODIUM BICARBONATE 100 MEQ in DEXTROSE 5% WATER 1,000 ML IV SCH ×2 (10:43→23:42)
[2018-12-16] MEDS: MIDODRINE HCL 2.5MG TABLET PO SCH ×2 (12:20→17:00)
[2018-12-16] MEDS: FENTANYL CITRATE/PF 1,000 MCG in SODIUM CHLORIDE 0.9% 80 ML IV SCH (17:46)
[2018-12-17] VITALS (85 sets, daily range): BP systolic 96–154; BP diastolic 45–96
[2018-12-17] MEDS: IPRATROPIUM/ALBUTEROL 0.5-3(2.5)MG/3ML NEB HHN SCH ×6 (00:05→20:10)
[2018-12-17] MEDS: ACETYLCYSTEINE 100MG/ML 10% VIAL 4ML INH SCH ×3 (00:05→16:39)
[2018-12-17] MEDS: BLOOD SUGAR DIAGNOSTIC STRIP TEST SCH ×4 (00:11→17:09)
[2018-12-17] MEDS: VANCOMYCIN HCL 1000 MG/20 ML ORAL PO SCH ×5 (00:11→23:47)
[2018-12-17] MEDS: INSULIN LISPRO 100 UNITS/ML SUBCUT SCH ×4 (00:37→17:14)
[2018-12-17 05:49] LABS: BASOPHILS % 0.7 % (0.0-2.0); EOSINOPHILS % 0.6 % (0.0-5.0); HEMATOCRIT. 22.7 % (42.0-52.0); HEMOGLOBIN. 7.7 g/dL (14.0-18.0); LYMPHOCYTES % 8.3 % (20.0-50.0); MEAN CORPUSCULAR HEMOGLOBIN 24.4 pg (28.0-32.0); MEAN CORPUSCULAR VOLUME 72.1 fL (80.0-94.0); MEAN PLATELET VOLUME 8.4 fl (7.4-10.4); MONOCYTES % 1.5 % (2.0-8.0); NEUTROPHILS % 88.9 % (40.0-76.0); PLATELET 136 x1000/uL (130-400); RED BLOOD CELL COUNT 3.15 mill/uL (4.7-6.1); RED CELL DISTRIBUTION WIDTH 29.2 % (11.6-14.6)
[2018-12-17 05:53] LABS: CHLORIDE 108 mEq/L (98-107)
[2018-12-17 06:00] LABS: PHOSPHORUS 5.1 mg/dL (2.5-4.9)
[2018-12-17] MEDS: METRONIDAZOLE 500 MG PREMIX 100 ML IV SCH ×3 (06:44→21:48)
[2018-12-17] MEDS: FENTANYL CITRATE/PF 1,000 MCG in SODIUM CHLORIDE 0.9% 80 ML IV SCH (07:22)
[2018-12-17] MEDS: FLUCONAZOLE 100MG TABLET PO SCH (08:12)
[2018-12-17] MEDS: PANTOPRAZOLE SODIUM 40 MG/VIAL IV SCH (08:12)
[2018-12-17] MEDS: MEROPENEM 500MG in NORMAL SALINE 50ML IV SCH ×2 (08:12→21:45)
[2018-12-17] MEDS: METOCLOPRAMIDE HCL 10MG TABLET PO SCH ×3 (08:12→17:13)
[2018-12-17] MEDS: MIDODRINE HCL 2.5MG TABLET PO SCH ×3 (08:13→16:16)
[2018-12-17 09:11] LABS: BG BASE EXCESS -1.7 mmol/L (-2.0-2.0); BG CARBOXYHEMOGLOBIN 0.3 % (0.5-1.5); BG DEOXYHEMOGLOBIN 4.2 % (0.0-5.0); BG FRACTION INSPIRED OXYGEN 50; BG HCO3 ACT 23.1 mmol/L (22.0-26.0); BG OXYGEN SATURATION 95.8 % (92.0-98.5); BG OXYHEMOGLOBIN 95.5 % (94.0-97.0); BG PCO2 38.8 mmHg (35.0-45.0); BG PH 7.392 (7.350-7.450); BG PO2 85.3 mmHg (75.0-100.0); BG SAMPLE SITE RIGHT RADIAL; BG TIDAL VOLUME(mL) 550 mL; BG TOTAL HEMOGLOBIN 9.2 g/dL (12.0-18.0); BG VENT MODE VENT - A/C; BG VENT RATE 18 set
[2018-12-17] MEDS ORDERED: POTASSIUM CHLORIDE 20MEQ TABLET SR PO NR (11:15)
[2018-12-17] MEDS: METHYLPREDNISOLONE SOD SUCC 125 MG/2 ML VIAL IV SCH ×2 (12:29→17:13)
[2018-12-17] MEDS ORDERED: SODIUM BICARBONATE IV SCH (14:30)
[2018-12-17] MEDS ORDERED: DEXTROSE 5% IV SCH (14:30)
[2018-12-17] MEDS ORDERED: WATER IV SCH (14:30)
[2018-12-17] MEDS ORDERED: POTASSIUM ACETATE IV SCH (14:30)
[2018-12-17] MEDS: WATER IV SCH (16:23)
[2018-12-17] MEDS: POTASSIUM ACETATE IV SCH (16:23)
[2018-12-17] MEDS: DEXTROSE 5% IV SCH (16:23)
[2018-12-17] MEDS: SODIUM BICARBONATE IV SCH (16:23)
[2018-12-18] VITALS (106 sets, daily range): BP systolic 121–168; BP diastolic 69–105
[2018-12-18] MEDS: ACETYLCYSTEINE 100MG/ML 10% VIAL 4ML INH SCH ×2 (00:04→08:19)
[2018-12-18] MEDS: IPRATROPIUM/ALBUTEROL 0.5-3(2.5)MG/3ML NEB HHN SCH ×6 (00:05→20:20)
[2018-12-18] MEDS: BLOOD SUGAR DIAGNOSTIC STRIP TEST SCH ×6 (00:29→20:33)
[2018-12-18] MEDS: METHYLPREDNISOLONE SOD SUCC 125 MG/2 ML VIAL IV SCH ×5 (00:29→23:46)
[2018-12-18] MEDS ORDERED: INSULIN LISPRO 100 UNITS/ML SUBCUT ONE (00:45)
[2018-12-18] MEDS ORDERED: INSULIN LISPRO 100 UNITS/ML SUBCUT SCH ×2 (00:45→04:00)
[2018-12-18] MEDS: FENTANYL CITRATE/PF 1,000 MCG in SODIUM CHLORIDE 0.9% 80 ML IV SCH ×2 (02:19→22:48)
[2018-12-18 05:25] LABS: BASOPHILS % 0.3 % (0.0-2.0); HEMATOCRIT. 23.4 % (42.0-52.0); HEMOGLOBIN. 7.9 g/dL (14.0-18.0); LYMPHOCYTES % 7.7 % (20.0-50.0); MEAN CORPUSCULAR HEMOGLOBIN 24.8 pg (28.0-32.0); MEAN CORPUSCULAR VOLUME 73.8 fL (80.0-94.0); MEAN PLATELET VOLUME 8.4 fl (7.4-10.4); MONOCYTES % 2.5 % (2.0-8.0); NEUTROPHILS % 89.5 % (40.0-76.0); PLATELET 133 x1000/uL (130-400); RED BLOOD CELL COUNT 3.17 mill/uL (4.7-6.1); RED CELL DISTRIBUTION WIDTH 29.6 % (11.6-14.6)
[2018-12-18] MEDS: VANCOMYCIN HCL 1000 MG/20 ML ORAL PO SCH ×3 (06:15→18:43)
[2018-12-18] MEDS: METRONIDAZOLE 500 MG PREMIX 100 ML IV SCH ×3 (06:15→21:08)
[2018-12-18] MEDS: DEXTROSE 5% IV SCH ×2 (06:24→21:08)
[2018-12-18] MEDS: POTASSIUM ACETATE IV SCH ×2 (06:24→21:08)
[2018-12-18] MEDS: SODIUM BICARBONATE IV SCH ×2 (06:24→21:08)
[2018-12-18] MEDS: WATER IV SCH ×2 (06:24→21:08)
[2018-12-18] MEDS: FLUCONAZOLE 100MG TABLET PO SCH (08:10)
[2018-12-18] MEDS: MEROPENEM 500MG in NORMAL SALINE 50ML IV SCH ×2 (08:10→21:08)
[2018-12-18] MEDS: MIDODRINE HCL 2.5MG TABLET PO SCH (08:10)
[2018-12-18] MEDS: PANTOPRAZOLE SODIUM 40 MG/VIAL IV SCH (08:10)
[2018-12-18] MEDS: METOCLOPRAMIDE HCL 10MG TABLET PO SCH ×3 (08:10→18:43)
[2018-12-18] MEDS: INSULIN LISPRO 100 UNITS/ML SUBCUT SCH ×7 (08:12→20:00)
[2018-12-18] MEDS ORDERED: INSULIN GLARGINE UD 100 UNITS/ML SYR SUBCUT SCH ×2 (09:00→10:00)
[2018-12-18 09:42] LABS: BG BASE EXCESS -3.7 mmol/L (-2.0-2.0); BG CARBOXYHEMOGLOBIN 0.3 % (0.5-1.5); BG DEOXYHEMOGLOBIN 1.4 % (0.0-5.0); BG FRACTION INSPIRED OXYGEN 50; BG OXYGEN SATURATION 98.6 % (92.0-98.5); BG OXYHEMOGLOBIN 97.3 % (94.0-97.0); BG PCO2 36.5 mmHg (35.0-45.0); BG PH 7.378 (7.350-7.450); BG PO2 208.9 mmHg (75.0-100.0); BG SAMPLE SITE RIGHT RADIAL; BG TIDAL VOLUME(mL) 550 mL; BG TOTAL HEMOGLOBIN 8.2 g/dL (12.0-18.0); BG VENT MODE VENT - A/C; BG VENT RATE 18 set
[2018-12-18 16:01] LABS: BASOPHILS % 0.3 % (0.0-2.0); HEMOGLOBIN. 7.5 g/dL (14.0-18.0); LYMPHOCYTES % 8.2 % (20.0-50.0); MEAN CORPUSCULAR VOLUME 73.3 fL (80.0-94.0); MEAN PLATELET VOLUME 8.3 fl (7.4-10.4); MONOCYTES % 2.4 % (2.0-8.0); NEUTROPHILS % 89.1 % (40.0-76.0); PLATELET 146 x1000/uL (130-400); RED BLOOD CELL COUNT 3.14 mill/uL (4.7-6.1)
[2018-12-18 16:02] LABS: INR 1.7; PROTHROMBIN TIME 17.1 sec (9.6-11.0)
[2018-12-18 16:41] LABS: PLATELET ESTIMATE NORMAL
[2018-12-18] MEDS: INSULIN GLARGINE UD 100 UNITS/ML SYR SUBCUT SCH (21:07)
[2018-12-18] MEDS ORDERED: INSULIN GLARGINE UD 100 UNITS/ML SYR SUBCUT NR (22:00)
[2018-12-19] VITALS (99 sets, daily range): BP systolic 61–206; BP diastolic 56–121
[2018-12-19] MEDS: BLOOD SUGAR DIAGNOSTIC STRIP TEST SCH ×7 (00:01→23:39)
[2018-12-19] MEDS: IPRATROPIUM/ALBUTEROL 0.5-3(2.5)MG/3ML NEB HHN SCH ×7 (00:18→23:59)
[2018-12-19] MEDS: VANCOMYCIN HCL 1000 MG/20 ML ORAL PO SCH ×5 (00:37→23:12)
[2018-12-19] MEDS: CLONIDINE 0.1MG TABLET PO PRN ×2 (00:37→15:37)
[2018-12-19] MEDS: HYDRALAZINE 20MG/ML VIAL IV PRN ×4 (03:38→23:11)
[2018-12-19] MEDS: INSULIN LISPRO 100 UNITS/ML SUBCUT SCH ×10 (04:00→23:39)
[2018-12-19] MEDS: METHYLPREDNISOLONE SOD SUCC 125 MG/2 ML VIAL IV SCH ×4 (05:06→23:11)
[2018-12-19] MEDS: METRONIDAZOLE 500 MG PREMIX 100 ML IV SCH ×3 (05:06→21:47)
[2018-12-19 05:56] LABS: BASOPHILS % 0.3 % (0.0-2.0); HEMATOCRIT. 28.4 % (42.0-52.0); HEMOGLOBIN. 9.6 g/dL (14.0-18.0); LYMPHOCYTES % 8.2 % (20.0-50.0); MEAN CORPUSCULAR HEMOGLOBIN 25.5 pg (28.0-32.0); MEAN CORPUSCULAR VOLUME 75.6 fL (80.0-94.0); MEAN PLATELET VOLUME 8.2 fl (7.4-10.4); NEUTROPHILS % 89.5 % (40.0-76.0); PLATELET 130 x1000/uL (130-400); RED BLOOD CELL COUNT 3.75 mill/uL (4.7-6.1); RED CELL DISTRIBUTION WIDTH 26.7 % (11.6-14.6)
[2018-12-19] MEDS ORDERED: HYDRALAZINE 20MG/ML VIAL IV SCH (06:00)
[2018-12-19 06:04] LABS: INR 1.4; PARTIAL THROMBOPLASTIN TIME 33.8 sec (23.4-31.0); PROTHROMBIN TIME 13.8 sec (9.6-11.0)
[2018-12-19 06:09] LABS: CHLORIDE 107 mEq/L (98-107)
[2018-12-19 06:16] LABS: LDL CHOLESTEROL 32 mg/dL (5-100); PHOSPHORUS 6.3 mg/dL (2.5-4.9)
[2018-12-19 06:17] LABS: HDL CHOLESTEROL 32 mg/dL (40-59)
[2018-12-19 07:22] LABS: BG BASE EXCESS -0.9 mmol/L (-2.0-2.0); BG CARBOXYHEMOGLOBIN 0.3 % (0.5-1.5); BG DEOXYHEMOGLOBIN 4.9 % (0.0-5.0); BG HCO3 ACT 24.5 mmol/L (22.0-26.0); BG METHEMOGLOBIN 0.3 % (0.0-1.5); BG OXYGEN SATURATION 95.1 % (92.0-98.5); BG OXYHEMOGLOBIN 94.5 % (94.0-97.0); BG PCO2 43.7 mmHg (35.0-45.0); BG PH 7.367 (7.350-7.450); BG PO2 79.6 mmHg (75.0-100.0); BG SAMPLE SITE RIGHT RADIAL; BG TIDAL VOLUME(mL) 550 mL; BG TOTAL HEMOGLOBIN 10.5 g/dL (12.0-18.0); BG VENT MODE VENT - A/C; BG VENT RATE 18 set
[2018-12-19] MEDS: METOCLOPRAMIDE HCL 10MG TABLET PO SCH ×3 (07:50→17:13)
[2018-12-19 08:16] LABS: HEMATOCRIT 28.3 % (42.0-52.0); HEMOGLOBIN 9.4 g/dL (14.0-18.0); MEAN CORPUSCULAR HEMOGLOBIN 25.3 pg (28.0-32.0); MEAN CORPUSCULAR VOLUME 76.2 fL (80.0-94.0); PLATELET 130 x1000/uL (130-400); RED BLOOD CELL COUNT 3.71 mill/uL (4.7-6.1); RED CELL DISTRIBUTION WIDTH 26.7 % (11.6-14.6)
[2018-12-19] MEDS: MEROPENEM 500MG in NORMAL SALINE 50ML IV SCH ×2 (08:19→21:47)
[2018-12-19] MEDS: PANTOPRAZOLE SODIUM 40 MG/VIAL IV SCH (08:20)
[2018-12-19 08:31] LABS: INR 1.4
[2018-12-19] MEDS ORDERED: BACITRACIN 50,000 UNITS/VIAL ONE (10:17)
[2018-12-19] MEDS ORDERED: SKIN ADHESIVE 0.7 GM EA TOP ONE (10:17)
[2018-12-19] MEDS: INSULIN GLARGINE UD 100 UNITS/ML SYR SUBCUT SCH ×2 (10:45→21:09)
[2018-12-19] MEDS ORDERED: PROPOFOL 200MG/20ML VIAL IV ONE (12:26)
[2018-12-19] MEDS ORDERED: ROCURONIUM BROMIDE 10MG/ML VIAL 5ML IV ONE (12:26)
[2018-12-19] MEDS ORDERED: MIDAZOLAM HCL 2 MG/2 ML VIAL ONE ×2 (12:26→13:47)
[2018-12-19] MEDS ORDERED: FENTANYL CITRATE/PF 50MCG/ML 2ML VIAL ONE (12:26)
[2018-12-19] MEDS ORDERED: NEOSTIGMINE METHYLSULFATE 1MG/ML 10 ML VIAL ONE (12:26)
[2018-12-19] MEDS ORDERED: GLYCOPYRROLATE 0.2 MG/ML 2ML VIAL ONE (12:27)
[2018-12-19] MEDS ORDERED: TETRACAINE/BENZOCAINE/BUTAMBEN 20 GM SPRAY MM ONE (12:29)
[2018-12-19] MEDS ORDERED: ONDANSETRON HCL 4MG/2ML INJ ONE (12:33)
[2018-12-19] MEDS ORDERED: DEXAMETHASONE 4MG/ML 1ML VIAL ONE (12:33)
[2018-12-19] MEDS ORDERED: HYDROMORPHONE HCL/PF 2MG/ML (OR) ONE (13:17)
[2018-12-19 15:29] LABS: HEMATOCRIT 27.5 % (42.0-52.0)
[2018-12-19] MEDS: WATER IV SCH (15:36)
[2018-12-19] MEDS: DEXTROSE 5% IV SCH (15:36)
[2018-12-19] MEDS: SODIUM BICARBONATE IV SCH (15:36)
[2018-12-19] MEDS: POTASSIUM ACETATE IV SCH (15:36)
[2018-12-19] MEDS: FLUCONAZOLE 100MG TABLET PO SCH (15:36)
[2018-12-19] MEDS ORDERED: CLONIDINE 0.2MG TABLET PO NR (18:30)
[2018-12-19] MEDS: CLONIDINE 0.2MG TABLET PO PRN (22:15)
[2018-12-20] VITALS (81 sets, daily range): BP systolic 69–205; BP diastolic 65–111
[2018-12-20] MEDS: WATER IV SCH ×2 (00:32→03:48)
[2018-12-20] MEDS: DEXTROSE 5% IV SCH ×2 (00:32→03:48)
[2018-12-20] MEDS: SODIUM BICARBONATE IV SCH ×3 (00:32→12:33)
[2018-12-20] MEDS: POTASSIUM ACETATE IV SCH ×3 (00:32→12:33)
[2018-12-20] MEDS: MORPHINE SULFATE 2 MG/ML CPJ (NOT FOR IM USE) IV PRN ×2 (00:33→13:39)
[2018-12-20] MEDS: FENTANYL CITRATE/PF 1,000 MCG in SODIUM CHLORIDE 0.9% 80 ML IV SCH (01:04)
[2018-12-20] MEDS: CLONIDINE 0.2MG TABLET PO PRN ×4 (02:11→18:29)
[2018-12-20] MEDS: HYDRALAZINE 20MG/ML VIAL IV PRN (03:34)
[2018-12-20] MEDS: INSULIN LISPRO 100 UNITS/ML SUBCUT SCH ×8 (04:00→20:00)
[2018-12-20] MEDS: BLOOD SUGAR DIAGNOSTIC STRIP TEST SCH ×5 (04:00→20:18)
[2018-12-20] MEDS: IPRATROPIUM/ALBUTEROL 0.5-3(2.5)MG/3ML NEB HHN SCH ×5 (04:09→20:06)
[2018-12-20] MEDS: METHYLPREDNISOLONE SOD SUCC 125 MG/2 ML VIAL IV SCH ×3 (05:35→17:01)
[2018-12-20] MEDS: METRONIDAZOLE 500 MG PREMIX 100 ML IV SCH ×2 (05:36→13:15)
[2018-12-20] MEDS: VANCOMYCIN HCL 1000 MG/20 ML ORAL PO SCH ×2 (05:36→12:34)
[2018-12-20 06:41] LABS: CHLORIDE 103 mEq/L (98-107)
[2018-12-20 06:49] LABS: PHOSPHORUS 5.7 mg/dL (2.5-4.9)
[2018-12-20 06:52] LABS: BETA HYDROXYBUTYRATE 0.1 mMol/L (0.0-0.3)
[2018-12-20 06:54] LABS: HEMATOCRIT. 29.9 % (42.0-52.0); HEMOGLOBIN. 10.1 g/dL (14.0-18.0); MEAN CORPUSCULAR HEMOGLOBIN 25.7 pg (28.0-32.0); MEAN CORPUSCULAR VOLUME 75.8 fL (80.0-94.0); MEAN PLATELET VOLUME 8.6 fl (7.4-10.4); PLATELET 120 x1000/uL (130-400); RED BLOOD CELL COUNT 3.94 mill/uL (4.7-6.1); RED CELL DISTRIBUTION WIDTH 26.9 % (11.6-14.6)
[2018-12-20 07:23] LABS: BG BASE EXCESS -2.4 mmol/L (-2.0-2.0); BG CARBOXYHEMOGLOBIN 0.5 % (0.5-1.5); BG DEOXYHEMOGLOBIN 9.4 % (0.0-5.0); BG HCO3 ACT 23.8 mmol/L (22.0-26.0); BG METHEMOGLOBIN 0.1 % (0.0-1.5); BG OXYGEN SATURATION 90.5 % (92.0-98.5); BG PCO2 46.5 mmHg (35.0-45.0); BG PH 7.327 (7.350-7.450); BG PO2 61.1 mmHg (75.0-100.0); BG SAMPLE SITE A-LINE; BG TIDAL VOLUME(mL) 550 mL; BG TOTAL HEMOGLOBIN 12.5 g/dL (12.0-18.0); BG VENT MODE VENT - A/C; BG VENT RATE 18 set
[2018-12-20 08:25] LABS: PLATELET ESTIMATE SLIGHTLY DECREASED
[2018-12-20] MEDS: PANTOPRAZOLE SODIUM 40 MG/VIAL IV SCH (08:26)
[2018-12-20] MEDS: LISINOPRIL 20MG TABLET PO SCH (08:26)
[2018-12-20] MEDS: AMLODIPINE 10MG TABLET PO SCH (08:26)
[2018-12-20] MEDS: METOCLOPRAMIDE HCL 10MG TABLET PO SCH ×3 (08:26→16:54)
[2018-12-20] MEDS: MEROPENEM 500MG in NORMAL SALINE 50ML IV SCH ×2 (08:26→21:39)
[2018-12-20] MEDS: FLUCONAZOLE 100MG TABLET PO SCH (08:26)
[2018-12-20] MEDS: HYDRALAZINE HCL 50MG TABLET PO SCH ×3 (08:27→21:39)
[2018-12-20 09:15] LABS: BG BASE EXCESS 0.6 mmol/L (-2.0-2.0); BG CARBOXYHEMOGLOBIN 0.1 % (0.5-1.5); BG DEOXYHEMOGLOBIN 2.1 % (0.0-5.0); BG FRACTION INSPIRED OXYGEN 40; BG HCO3 ACT 23.9 mmol/L (22.0-26.0); BG OXYGEN SATURATION 97.9 % (92.0-98.5); BG OXYHEMOGLOBIN 97.8 % (94.0-97.0); BG PCO2 33.4 mmHg (35.0-45.0); BG PH 7.472 (7.350-7.450); BG PO2 118.5 mmHg (75.0-100.0); BG SAMPLE SITE A-LINE; BG TIDAL VOLUME(mL) 550 mL; BG TOTAL HEMOGLOBIN 10.2 g/dL (12.0-18.0); BG VENT MODE VENT - A/C; BG VENT RATE 18 set
[2018-12-20] MEDS: INSULIN GLARGINE UD 100 UNITS/ML SYR SUBCUT SCH ×2 (09:49→22:00)
[2018-12-20] MEDS: NACL IV SCH (12:33)
[2018-12-20] MEDS: DEXT IV SCH (12:33)
[2018-12-20] MEDS: LACTULOSE 20G/30ML UDC PO SCH ×2 (16:55→21:38)
[2018-12-20 18:55] LABS: CLARITY URINE TURBID (CLEAR); COLOR URINE YELLOW (YELLOW); KETONES URINE NEGATIVE (NEGATIVE); LEUKOCYTE ESTERASE URINE 2+ (NEGATIVE); NITRITE URINE NEGATIVE (NEGATIVE); OCCULT BLOOD URINE 2+ (NEGATIVE); PROTEIN URINE 1+ (NEGATIVE); SPECIFIC GRAVITY URINE 1.013 (1.005-1.030); UROBILINOGEN URINE 0.2 E.U./dL (0.2-1.0)
[2018-12-21] VITALS (49 sets, daily range): BP systolic 135–185; BP diastolic 80–116
[2018-12-21] MEDS: METHYLPREDNISOLONE SOD SUCC 125 MG/2 ML VIAL IV SCH ×5 (00:28→23:55)
[2018-12-21] MEDS: BLOOD SUGAR DIAGNOSTIC STRIP TEST SCH ×7 (00:28→23:55)
[2018-12-21] MEDS: IPRATROPIUM/ALBUTEROL 0.5-3(2.5)MG/3ML NEB HHN SCH ×6 (00:35→20:31)
[2018-12-21] MEDS: HYDRALAZINE 20MG/ML VIAL IV PRN (00:37)
[2018-12-21] MEDS: DEXT IV SCH (01:15)
[2018-12-21] MEDS: NACL IV SCH (01:15)
[2018-12-21] MEDS: POTASSIUM ACETATE IV SCH (01:15)
[2018-12-21] MEDS: SODIUM BICARBONATE IV SCH ×2 (01:15→11:30)
[2018-12-21] MEDS: INSULIN LISPRO 100 UNITS/ML SUBCUT SCH ×7 (04:00→23:56)
[2018-12-21 05:16] LABS: HEMATOCRIT. 29.5 % (42.0-52.0); HEMOGLOBIN. 9.8 g/dL (14.0-18.0); MEAN CORPUSCULAR HEMOGLOBIN 25.4 pg (28.0-32.0); MEAN CORPUSCULAR VOLUME 76.3 fL (80.0-94.0); MEAN PLATELET VOLUME 8.4 fl (7.4-10.4); PLATELET 122 x1000/uL (130-400); RED BLOOD CELL COUNT 3.87 mill/uL (4.7-6.1); RED CELL DISTRIBUTION WIDTH 27.2 % (11.6-14.6)
[2018-12-21 05:23] LABS: CHLORIDE 104 mEq/L (98-107)
[2018-12-21 05:29] LABS: PHOSPHORUS 6.3 mg/dL (2.5-4.9)
[2018-12-21] MEDS: LACTULOSE 20G/30ML UDC PO SCH ×3 (05:45→22:00)
[2018-12-21] MEDS: HYDRALAZINE HCL 50MG TABLET PO SCH (05:46)
[2018-12-21 06:29] LABS: PLATELET ESTIMATE SLIGHTLY DECREASED
[2018-12-21 07:16] LABS: BG BASE EXCESS 1.2 mmol/L (-2.0-2.0); BG CARBOXYHEMOGLOBIN 0.7 % (0.5-1.5); BG DEOXYHEMOGLOBIN 2.5 % (0.0-5.0); BG FRACTION INSPIRED OXYGEN 40; BG HCO3 ACT 26.1 mmol/L (22.0-26.0); BG METHEMOGLOBIN 0.3 % (0.0-1.5); BG OXYGEN SATURATION 97.5 % (92.0-98.5); BG OXYHEMOGLOBIN 96.5 % (94.0-97.0); BG PCO2 42.3 mmHg (35.0-45.0); BG PH 7.408 (7.350-7.450); BG PO2 106.4 mmHg (75.0-100.0); BG PRESSURE SUPPORT 12; BG SAMPLE SITE RIGHT RADIAL; BG TIDAL VOLUME(mL) 500 mL; BG TOTAL HEMOGLOBIN 12.8 g/dL (12.0-18.0); BG VENT MODE VENT - SIMV; BG VENT RATE 10 set
[2018-12-21] MEDS: PANTOPRAZOLE SODIUM 40 MG/VIAL IV SCH (08:25)
[2018-12-21] MEDS: MEROPENEM 500MG in NORMAL SALINE 50ML IV SCH ×2 (08:25→21:08)
[2018-12-21] MEDS: AMLODIPINE 10MG TABLET PO SCH (08:26)
[2018-12-21] MEDS: LISINOPRIL 20MG TABLET PO SCH (08:26)
[2018-12-21] MEDS: CLONIDINE 0.2MG TABLET PO PRN (08:29)
[2018-12-21] MEDS: METOCLOPRAMIDE HCL 10MG TABLET PO SCH ×2 (08:30→12:50)
[2018-12-21] MEDS: INSULIN GLARGINE UD 100 UNITS/ML SYR SUBCUT SCH ×2 (10:00→22:00)
[2018-12-21 11:26] LABS: BG BASE EXCESS 3.2 mmol/L (-2.0-2.0); BG CARBOXYHEMOGLOBIN 0.3 % (0.5-1.5); BG DEOXYHEMOGLOBIN 4.1 % (0.0-5.0); BG FRACTION INSPIRED OXYGEN 35; BG HCO3 ACT 27.8 mmol/L (22.0-26.0); BG METHEMOGLOBIN 0.1 % (0.0-1.5); BG OXYGEN SATURATION 95.9 % (92.0-98.5); BG OXYHEMOGLOBIN 95.5 % (94.0-97.0); BG PCO2 42.7 mmHg (35.0-45.0); BG PH 7.432 (7.350-7.450); BG PO2 82.3 mmHg (75.0-100.0); BG PRESSURE SUPPORT 8; BG SAMPLE SITE RIGHT RADIAL; BG TOTAL HEMOGLOBIN 10.6 g/dL (12.0-18.0); BG VENT MODE VENT - CPAP
[2018-12-21] MEDS: DEXTROSE 5% IV SCH (11:30)
[2018-12-21] MEDS: POTASSIUM CHLORIDE IV SCH (11:30)
[2018-12-21] MEDS: WATER IV SCH (11:30)
[2018-12-21] MEDS ORDERED: LABETALOL 5MG/ML SYR 20 MG/4 ML SYRINGE IV PRN (13:45)
[2018-12-21] MEDS: HYDRALAZINE HCL 100MG TABLET PO SCH ×2 (14:00→22:00)
[2018-12-21] MEDS ORDERED: CLONIDINE HCL 0.2MG/24HR PATCH TD SCH (15:00)
[2018-12-21] MEDS ORDERED: CLONIDINE HCL 0.3MG/24HR PATCH TD SCH (15:30)
[2018-12-21] MEDS: METOCLOPRAMIDE HCL 10MG/2ML VIAL IV SCH ×2 (17:33→23:55)
[2018-12-21] MEDS: DILTIAZEM HCL 5MG/ML 5ML VIAL IV PRN ×2 (17:34→23:10)
[2018-12-22] VITALS (27 sets, daily range): BP systolic 127–176; BP diastolic 37–110
[2018-12-22] MEDS: IPRATROPIUM/ALBUTEROL 0.5-3(2.5)MG/3ML NEB HHN SCH ×6 (00:22→21:00)
[2018-12-22] MEDS: POTASSIUM CHLORIDE IV SCH (02:06)
[2018-12-22] MEDS: SODIUM BICARBONATE IV SCH (02:06)
[2018-12-22] MEDS: WATER IV SCH (02:06)
[2018-12-22] MEDS: DEXTROSE 5% IV SCH (02:06)
[2018-12-22] MEDS: BLOOD SUGAR DIAGNOSTIC STRIP TEST SCH ×5 (03:55→20:00)
[2018-12-22] MEDS: INSULIN LISPRO 100 UNITS/ML SUBCUT SCH ×5 (03:57→22:12)
[2018-12-22 05:01] LABS: HEMATOCRIT. 31.5 % (42.0-52.0); HEMOGLOBIN. 10.3 g/dL (14.0-18.0); MEAN CORPUSCULAR HEMOGLOBIN 25.2 pg (28.0-32.0); MEAN PLATELET VOLUME 8.4 fl (7.4-10.4); PLATELET 150 x1000/uL (130-400); RED CELL DISTRIBUTION WIDTH 26.9 % (11.6-14.6)
[2018-12-22 05:09] LABS: CHLORIDE 102 mEq/L (98-107)
[2018-12-22 05:21] LABS: PHOSPHORUS 6.5 mg/dL (2.5-4.9)
[2018-12-22] MEDS: LACTULOSE 20G/30ML UDC PO SCH ×3 (05:59→22:00)
[2018-12-22] MEDS: METOCLOPRAMIDE HCL 10MG/2ML VIAL IV SCH ×3 (05:59→18:23)
[2018-12-22] MEDS: HYDRALAZINE HCL 100MG TABLET PO SCH ×3 (05:59→22:07)
[2018-12-22] MEDS: METHYLPREDNISOLONE SOD SUCC 125 MG/2 ML VIAL IV SCH ×3 (05:59→18:23)
[2018-12-22 07:47] LABS: PLATELET ESTIMATE NORMAL
[2018-12-22] MEDS: AMLODIPINE 10MG TABLET PO SCH (08:16)
[2018-12-22] MEDS: LISINOPRIL 20MG TABLET PO SCH (08:16)
[2018-12-22] MEDS: INSULIN GLARGINE UD 100 UNITS/ML SYR SUBCUT SCH ×2 (09:28→22:12)
[2018-12-22] MEDS: PANTOPRAZOLE SODIUM 40 MG/VIAL IV SCH (10:28)
[2018-12-22] MEDS: POTASSIUM CHLORIDE INJ 10 MEQ in SODIUM CHLORIDE 0.45% 1,000 ML IV SCH (11:58)
[2018-12-22] MEDS: DILTIAZEM HCL 60MG TABLET PO SCH (22:08)
[2018-12-23] VITALS: BP 139/94
[2018-12-23] MEDS: IPRATROPIUM/ALBUTEROL 0.5-3(2.5)MG/3ML NEB HHN SCH ×6 (00:22→20:50)
[2018-12-23] MEDS: METOCLOPRAMIDE HCL 10MG/2ML VIAL IV SCH ×4 (01:11→18:13)
[2018-12-23] MEDS: METHYLPREDNISOLONE SOD SUCC 125 MG/2 ML VIAL IV SCH ×4 (01:11→18:13)
[2018-12-23 04:00] VITALS: BP 111/82
[2018-12-23] MEDS: BLOOD SUGAR DIAGNOSTIC STRIP TEST SCH ×6 (04:00→20:00)
[2018-12-23] MEDS: LACTULOSE 20G/30ML UDC PO SCH ×3 (06:00→21:38)
[2018-12-23] MEDS: DILTIAZEM HCL 60MG TABLET PO SCH ×3 (06:20→21:41)
[2018-12-23] MEDS: HYDRALAZINE HCL 100MG TABLET PO SCH ×3 (06:20→21:41)
[2018-12-23] MEDS: INSULIN LISPRO 100 UNITS/ML SUBCUT SCH ×5 (06:26→20:00)
[2018-12-23 06:40] LABS: HEMOGLOBIN. 9.5 g/dL (14.0-18.0); MEAN CORPUSCULAR HEMOGLOBIN 25.5 pg (28.0-32.0); MEAN CORPUSCULAR VOLUME 75.7 fL (80.0-94.0); MEAN PLATELET VOLUME 8.4 fl (7.4-10.4); PLATELET 207 x1000/uL (130-400); RED CELL DISTRIBUTION WIDTH 26.6 % (11.6-14.6)
[2018-12-23 06:53] LABS: CHLORIDE 102 mEq/L (98-107)
[2018-12-23 07:01] LABS: PHOSPHORUS 6.7 mg/dL (2.5-4.9)
[2018-12-23 08:00] VITALS: BP 124/71
[2018-12-23 10:29] LABS: PLATELET ESTIMATE NORMAL
[2018-12-23] MEDS: LISINOPRIL 20MG TABLET PO SCH (10:35)
[2018-12-23] MEDS: PANTOPRAZOLE SODIUM 40 MG/VIAL IV SCH (10:35)
[2018-12-23 12:00] VITALS: BP_SYST 129; BP_SYST 139; BP_DIAS 79; BP_DIAS 89
[2018-12-23] MEDS: INSULIN GLARGINE UD 100 UNITS/ML SYR SUBCUT SCH ×2 (12:08→21:50)
[2018-12-23] MEDS: POTASSIUM CHLORIDE INJ 10 MEQ in SODIUM CHLORIDE 0.45% 1,000 ML IV SCH (13:18)
[2018-12-23 16:00] VITALS: BP 126/79
[2018-12-23 20:00] VITALS: BP 134/74
[2018-12-24] VITALS (7 sets, daily range): BP systolic 119–167; BP diastolic 70–90
[2018-12-24] MEDS: BLOOD SUGAR DIAGNOSTIC STRIP TEST SCH ×5 (00:13→17:52)
[2018-12-24] MEDS: METHYLPREDNISOLONE SOD SUCC 125 MG/2 ML VIAL IV SCH ×5 (00:13→23:55)
[2018-12-24] MEDS: METOCLOPRAMIDE HCL 10MG/2ML VIAL IV SCH ×4 (00:13→19:07)
[2018-12-24] MEDS: IPRATROPIUM/ALBUTEROL 0.5-3(2.5)MG/3ML NEB HHN SCH ×6 (00:54→22:07)
[2018-12-24] MEDS: INSULIN LISPRO 100 UNITS/ML SUBCUT SCH ×5 (04:00→17:10)
[2018-12-24] MEDS: DILTIAZEM HCL 60MG TABLET PO SCH ×3 (05:34→21:22)
[2018-12-24] MEDS: HYDRALAZINE HCL 100MG TABLET PO SCH ×3 (05:34→21:21)
[2018-12-24] MEDS: LACTULOSE 20G/30ML UDC PO SCH ×3 (05:35→21:20)
[2018-12-24 06:35] LABS: HEMATOCRIT. 26.3 % (42.0-52.0); HEMOGLOBIN. 8.9 g/dL (14.0-18.0); MEAN CORPUSCULAR HEMOGLOBIN 25.5 pg (28.0-32.0); MEAN CORPUSCULAR VOLUME 75.4 fL (80.0-94.0); MEAN PLATELET VOLUME 8.3 fl (7.4-10.4); PLATELET 232 x1000/uL (130-400); RED BLOOD CELL COUNT 3.49 mill/uL (4.7-6.1); RED CELL DISTRIBUTION WIDTH 26.9 % (11.6-14.6)
[2018-12-24 07:48] LABS: CHLORIDE 105 mEq/L (98-107)
[2018-12-24 07:53] LABS: PHOSPHORUS 6.5 mg/dL (2.5-4.9)
[2018-12-24] MEDS: LISINOPRIL 20MG TABLET PO SCH (09:37)
[2018-12-24] MEDS: PANTOPRAZOLE SODIUM 40 MG/VIAL IV SCH (09:39)
[2018-12-24] MEDS: INSULIN GLARGINE UD 100 UNITS/ML SYR SUBCUT SCH (11:09)
[2018-12-24 14:03] LABS: PLATELET ESTIMATE NORMAL
[2018-12-25] VITALS: BP 129/74
[2018-12-25] MEDS: IPRATROPIUM/ALBUTEROL 0.5-3(2.5)MG/3ML NEB HHN SCH ×6 (02:07→20:47)
[2018-12-25 04:00] VITALS: BP 183/115
[2018-12-25] MEDS: HYDRALAZINE HCL 100MG TABLET PO SCH ×3 (06:21→21:24)
[2018-12-25] MEDS: METHYLPREDNISOLONE SOD SUCC 125 MG/2 ML VIAL IV SCH (06:21)
[2018-12-25] MEDS: LACTULOSE 20G/30ML UDC PO SCH (06:21)
[2018-12-25] MEDS: DILTIAZEM HCL 60MG TABLET PO SCH ×3 (06:21→21:24)
[2018-12-25 07:16] LABS: HEMATOCRIT. 27.7 % (42.0-52.0); HEMOGLOBIN. 9.2 g/dL (14.0-18.0); MEAN CORPUSCULAR HEMOGLOBIN 25.2 pg (28.0-32.0); MEAN CORPUSCULAR VOLUME 75.7 fL (80.0-94.0); MEAN PLATELET VOLUME 8.4 fl (7.4-10.4); PLATELET 246 x1000/uL (130-400); RED BLOOD CELL COUNT 3.65 mill/uL (4.7-6.1); RED CELL DISTRIBUTION WIDTH 26.6 % (11.6-14.6)
[2018-12-25 07:53] LABS: PHOSPHORUS 7.5 mg/dL (2.5-4.9)
[2018-12-25 08:00] VITALS: BP 151/83
[2018-12-25] MEDS: PANTOPRAZOLE SODIUM 40 MG/VIAL IV SCH (09:25)
[2018-12-25] MEDS: LISINOPRIL 20MG TABLET PO SCH (09:25)
[2018-12-25 11:21] LABS: PLATELET ESTIMATE NORMAL
[2018-12-25 12:00] VITALS: BP 128/74
[2018-12-25] MEDS: PREDNISONE 20MG TABLET PO SCH ×2 (13:42→21:25)
[2018-12-25] MEDS ORDERED: METHYLPREDNISOLONE SOD SUCC 40 MG/ML VIAL IV SCH (14:00)
[2018-12-25 16:00] VITALS: BP 127/77
[2018-12-25] MEDS: BLOOD SUGAR DIAGNOSTIC STRIP TEST SCH ×2 (17:10→22:30)
[2018-12-25] MEDS: INSULIN LISPRO 100 UNITS/ML SUBCUT SCH ×2 (18:36→23:16)
[2018-12-25 20:00] VITALS: BP 131/64
[2018-12-25] MEDS ORDERED: INSULIN LISPRO 100 UNITS/ML SUBCUT SCH (23:00)
[2018-12-25] MEDS ORDERED: DEXTROSE 50% WATER 50ML SYRINGE IV PRN (23:00)
[2018-12-26] VITALS: BP 126/65
[2018-12-26] MEDS: IPRATROPIUM/ALBUTEROL 0.5-3(2.5)MG/3ML NEB HHN SCH ×6 (00:23→20:27)
[2018-12-26 04:00] VITALS: BP 137/82
[2018-12-26] MEDS: PREDNISONE 20MG TABLET PO SCH ×3 (05:59→21:37)
[2018-12-26] MEDS: DILTIAZEM HCL 60MG TABLET PO SCH ×3 (06:01→21:37)
[2018-12-26] MEDS: HYDRALAZINE HCL 100MG TABLET PO SCH ×3 (06:02→21:37)
[2018-12-26] MEDS: BLOOD SUGAR DIAGNOSTIC STRIP TEST SCH ×4 (06:11→21:00)
[2018-12-26] MEDS: INSULIN LISPRO 100 UNITS/ML SUBCUT SCH ×4 (06:41→21:00)
[2018-12-26 07:06] LABS: HEMATOCRIT. 25.5 % (42.0-52.0); HEMOGLOBIN. 8.5 g/dL (14.0-18.0); MEAN CORPUSCULAR VOLUME 75.5 fL (80.0-94.0); MEAN PLATELET VOLUME 8.2 fl (7.4-10.4); PLATELET 256 x1000/uL (130-400); RED BLOOD CELL COUNT 3.38 mill/uL (4.7-6.1); RED CELL DISTRIBUTION WIDTH 26.1 % (11.6-14.6)
[2018-12-26] MEDS ORDERED: BLOOD SUGAR DIAGNOSTIC STRIP TEST SCH (07:10)
[2018-12-26 07:34] LABS: CHLORIDE 108 mEq/L (98-107)
[2018-12-26] MEDS ORDERED: INSULIN LISPRO 100 UNITS/ML SUBCUT SCH (07:40)
[2018-12-26 07:49] LABS: PHOSPHORUS 7.9 mg/dL (2.5-4.9)
[2018-12-26 08:00] VITALS: BP 143/83
[2018-12-26] MEDS: PANTOPRAZOLE SODIUM 40 MG/VIAL IV SCH (11:28)
[2018-12-26] MEDS: ASCORBIC ACID 250 MG TABLET PO SCH (11:28)
[2018-12-26] MEDS: ZINC SULFATE 220 MG ( 50 ) CAPSULE PO SCH (11:29)
[2018-12-26] MEDS: LISINOPRIL 20MG TABLET PO SCH (11:31)
[2018-12-26 12:00] VITALS: BP 156/86
[2018-12-26 15:24] LABS: PLATELET ESTIMATE NORMAL
[2018-12-26 16:00] VITALS: BP 118/72
[2018-12-26 20:00] VITALS: BP 148/76
[2018-12-26] MEDS ORDERED: INSULIN GLARGINE UD 100 UNITS/ML SYR SUBCUT SCH (22:00)
[2018-12-27] VITALS: BP 142/76
[2018-12-27] MEDS: IPRATROPIUM/ALBUTEROL 0.5-3(2.5)MG/3ML NEB HHN SCH ×6 (01:03→21:52)
[2018-12-27 04:00] VITALS: BP 144/81
[2018-12-27] MEDS: PREDNISONE 20MG TABLET PO SCH ×3 (06:03→21:04)
[2018-12-27] MEDS: DILTIAZEM HCL 60MG TABLET PO SCH ×3 (06:04→21:05)
[2018-12-27] MEDS: HYDRALAZINE HCL 100MG TABLET PO SCH ×3 (06:04→21:05)
[2018-12-27 06:49] LABS: HEMATOCRIT. 25.1 % (42.0-52.0); HEMOGLOBIN. 8.6 g/dL (14.0-18.0); MEAN CORPUSCULAR HEMOGLOBIN 25.9 pg (28.0-32.0); MEAN CORPUSCULAR VOLUME 75.3 fL (80.0-94.0); MEAN PLATELET VOLUME 8.4 fl (7.4-10.4); PLATELET 260 x1000/uL (130-400); RED BLOOD CELL COUNT 3.33 mill/uL (4.7-6.1); RED CELL DISTRIBUTION WIDTH 26.9 % (11.6-14.6)
[2018-12-27] MEDS: BLOOD SUGAR DIAGNOSTIC STRIP TEST SCH ×4 (07:10→21:00)
[2018-12-27] MEDS: INSULIN LISPRO 100 UNITS/ML SUBCUT SCH ×4 (07:40→21:09)
[2018-12-27 08:00] VITALS: BP 135/76
[2018-12-27 08:08] LABS: PHOSPHORUS 7.7 mg/dL (2.5-4.9)
[2018-12-27] MEDS: ASCORBIC ACID 250 MG TABLET PO SCH (10:08)
[2018-12-27] MEDS: ZINC SULFATE 220 MG ( 50 ) CAPSULE PO SCH (10:08)
[2018-12-27] MEDS: PANTOPRAZOLE SODIUM 40 MG/VIAL IV SCH (10:09)
[2018-12-27] MEDS: LISINOPRIL 20MG TABLET PO SCH (10:09)
[2018-12-27 10:23] LABS: PLATELET ESTIMATE NORMAL
[2018-12-27 12:00] VITALS: BP 152/78
[2018-12-27 16:41] VITALS: BP 157/58
[2018-12-27 20:00] VITALS: BP 144/84
[2018-12-27] MEDS ORDERED: INSULIN GLARGINE UD 100 UNITS/ML SYR SUBCUT SCH (22:00)
[2018-12-28] VITALS: BP 142/83
[2018-12-28] MEDS: IPRATROPIUM/ALBUTEROL 0.5-3(2.5)MG/3ML NEB HHN SCH ×6 (00:54→20:00)
[2018-12-28] MEDS: PREDNISONE 20MG TABLET PO SCH ×2 (05:19→15:41)
[2018-12-28] MEDS: HYDRALAZINE HCL 100MG TABLET PO SCH ×3 (05:20→22:00)
[2018-12-28] MEDS: DILTIAZEM HCL 60MG TABLET PO SCH ×3 (05:20→22:00)
[2018-12-28 06:18] LABS: HEMATOCRIT. 28.8 % (42.0-52.0); HEMOGLOBIN. 9.2 g/dL (14.0-18.0); MEAN PLATELET VOLUME 8.9 fl (7.4-10.4); PLATELET 273 x1000/uL (130-400); RED BLOOD CELL COUNT 3.69 mill/uL (4.7-6.1); RED CELL DISTRIBUTION WIDTH 26.9 % (11.6-14.6)
[2018-12-28] MEDS: INSULIN LISPRO 100 UNITS/ML SUBCUT SCH ×4 (06:22→20:34)
[2018-12-28] MEDS: BLOOD SUGAR DIAGNOSTIC STRIP TEST SCH ×4 (06:22→19:56)
[2018-12-28 06:28] LABS: CHLORIDE 109 mEq/L (98-107)
[2018-12-28 07:51] LABS: PHOSPHORUS 8.3 mg/dL (2.5-4.9)
[2018-12-28 08:00] VITALS: BP 114/69
[2018-12-28] MEDS: LISINOPRIL 20MG TABLET PO SCH (09:00)
[2018-12-28 10:03] LABS: PLATELET ESTIMATE NORMAL
[2018-12-28] MEDS: ZINC SULFATE 220 MG ( 50 ) CAPSULE PO SCH (10:06)
[2018-12-28] MEDS: ASCORBIC ACID 250 MG TABLET PO SCH (10:07)
[2018-12-28] MEDS: FAMOTIDINE 20MG TABLET PO SCH (10:07)
[2018-12-28 12:00] VITALS: BP 154/73
[2018-12-28] MEDS ORDERED: SODIUM BICARBONATE 4% (2.4MEQ) 5ML VIAL IV ONE (13:09)
[2018-12-28] MEDS ORDERED: LIDOCAINE HCL 1% 20ML VIAL (Pyxis) INJ ONE (13:09)
[2018-12-28 17:33] VITALS: BP 140/76
[2018-12-28 20:00] VITALS: BP 158/87
[2018-12-28 22:55] VITALS: BP 159/93
[2018-12-29] VITALS (17 sets, daily range): BP systolic 111–152; BP diastolic 61–98
[2018-12-29] MEDS: PREDNISONE 20MG TABLET PO SCH ×3 (00:42→14:00)
[2018-12-29] MEDS: IPRATROPIUM/ALBUTEROL 0.5-3(2.5)MG/3ML NEB HHN SCH ×6 (00:43→21:03)
[2018-12-29] MEDS: BLOOD SUGAR DIAGNOSTIC STRIP TEST SCH ×4 (05:51→22:25)
[2018-12-29] MEDS: HYDRALAZINE HCL 100MG TABLET PO SCH ×3 (05:58→22:24)
[2018-12-29] MEDS: DILTIAZEM HCL 60MG TABLET PO SCH ×3 (05:58→22:25)
[2018-12-29] MEDS: INSULIN LISPRO 100 UNITS/ML SUBCUT SCH ×4 (06:01→22:00)
[2018-12-29 06:05] LABS: CHLORIDE 108 mEq/L (98-107)
[2018-12-29 06:12] LABS: HEMATOCRIT. 28.6 % (42.0-52.0); HEMOGLOBIN. 9.5 g/dL (14.0-18.0); MEAN CORPUSCULAR HEMOGLOBIN 25.3 pg (28.0-32.0); MEAN PLATELET VOLUME 8.6 fl (7.4-10.4); PLATELET 232 x1000/uL (130-400); RED BLOOD CELL COUNT 3.76 mill/uL (4.7-6.1); RED CELL DISTRIBUTION WIDTH 26.3 % (11.6-14.6)
[2018-12-29 09:27] LABS: NUCLEATED RED BLOOD CELLS 3 /100 WBC; PLATELET ESTIMATE NORMAL
[2018-12-29] MEDS: ZINC SULFATE 220 MG ( 50 ) CAPSULE PO SCH (09:31)
[2018-12-29] MEDS: ASCORBIC ACID 250 MG TABLET PO SCH (09:31)
[2018-12-29] MEDS: LISINOPRIL 20MG TABLET PO SCH (09:31)
[2018-12-29] MEDS: FAMOTIDINE 20MG TABLET PO SCH (09:31)
[2018-12-29] MEDS: LACTOBACILLUS GG CAPSULE PO SCH (13:32)
[2018-12-29 13:33] LABS: INR 1.5; PROTHROMBIN TIME 15.4 sec (9.6-11.0)
[2018-12-29 15:56] LABS: CREATINE KINASE 82 IU/L (39-308)
[2018-12-29 21:47] LABS: BG BASE EXCESS -3.6 mmol/L (-2.0-2.0); BG CARBOXYHEMOGLOBIN 0.3 % (0.5-1.5); BG DEOXYHEMOGLOBIN 10.1 % (0.0-5.0); BG FRACTION INSPIRED OXYGEN 36; BG HCO3 ACT 19.7 mmol/L (22.0-26.0); BG METHEMOGLOBIN 0.1 % (0.0-1.5); BG OXYGEN SATURATION 89.9 % (92.0-98.5); BG OXYHEMOGLOBIN 89.5 % (94.0-97.0); BG PCO2 29.1 mmHg (35.0-45.0); BG PH 7.448 (7.350-7.450); BG SAMPLE SITE LEFT RADIAL; BG VENT MODE NASAL CANNULA
[2018-12-29] MEDS ORDERED: LACTULOSE 20G/30ML UDC PO SCH ×3 (22:00→22:29)
[2018-12-29] MEDS ORDERED: PIPERACILLIN/TAZOBACTAM 2.25 G in DEXTROSE 5% WATER 50 ML IV SCH (22:00)
[2018-12-29] MEDS: DEXT 5%/0.45% NACL 1000ML 1,000 ML IV SCH (22:51)
[2018-12-29] MEDS ORDERED: VANCOMYCIN 1500MG in DEXTROSE 5% WATER 250ML IV SCH (23:00)
[2018-12-29] MEDS: PIPERACILLIN/TAZOBACTAM 2.25 G in DEXTROSE 5% WATER 50 ML IV SCH (23:06)
[2018-12-30] VITALS (101 sets, daily range): BP systolic 50–189; BP diastolic 24–78
[2018-12-30] MEDS: IPRATROPIUM/ALBUTEROL 0.5-3(2.5)MG/3ML NEB HHN SCH ×6 (00:28→19:58)
[2018-12-30] MEDS ORDERED: SUCCINYLCHOLINE CHLORIDE 200MG/10ML IV ONE (03:00)
[2018-12-30] MEDS ORDERED: ETOMIDATE 2MG/ML 10ML VIAL IV ONE (03:00)
[2018-12-30 04:36] LABS: HEMATOCRIT. 27.6 % (42.0-52.0); HEMOGLOBIN. 9.1 g/dL (14.0-18.0); MEAN CORPUSCULAR HEMOGLOBIN 25.2 pg (28.0-32.0); MEAN CORPUSCULAR VOLUME 76.5 fL (80.0-94.0); RED BLOOD CELL COUNT 3.61 mill/uL (4.7-6.1); RED CELL DISTRIBUTION WIDTH 27.1 % (11.6-14.6)
[2018-12-30 04:46] LABS: BG BASE EXCESS -4.4 mmol/L (-2.0-2.0); BG CARBOXYHEMOGLOBIN 0.3 % (0.5-1.5); BG DEOXYHEMOGLOBIN 1.3 % (0.0-5.0); BG FRACTION INSPIRED OXYGEN 100; BG METHEMOGLOBIN 0.2 % (0.0-1.5); BG OXYGEN SATURATION 98.7 % (92.0-98.5); BG OXYHEMOGLOBIN 98.2 % (94.0-97.0); BG PCO2 34.1 mmHg (35.0-45.0); BG PH 7.387 (7.350-7.450); BG PO2 257.4 mmHg (75.0-100.0); BG SAMPLE SITE LEFT RADIAL; BG TIDAL VOLUME(mL) 550 mL; BG TOTAL HEMOGLOBIN 9.3 g/dL (12.0-18.0); BG VENT MODE VENT - A/C; BG VENT RATE 16 set
[2018-12-30 04:54] LABS: CHLORIDE 108 mEq/L (98-107)
[2018-12-30 05:00] LABS: PHOSPHORUS 6.4 mg/dL (2.5-4.9)
[2018-12-30] MEDS: PIPERACILLIN/TAZOBACTAM 2.25 G in DEXTROSE 5% WATER 50 ML IV SCH ×4 (05:15→23:34)
[2018-12-30] MEDS: HYDRALAZINE HCL 100MG TABLET PO SCH (05:15)
[2018-12-30] MEDS: DILTIAZEM HCL 60MG TABLET PO SCH (05:15)
[2018-12-30] MEDS: PROPOFOL 10MG/ML 100ML 100 ML IV PRN ×2 (05:59→17:34)
[2018-12-30] MEDS: PREDNISONE 20MG TABLET PO SCH (06:20)
[2018-12-30] MEDS: INSULIN LISPRO 100 UNITS/ML SUBCUT SCH ×4 (06:20→23:34)
[2018-12-30] MEDS: BLOOD SUGAR DIAGNOSTIC STRIP TEST SCH ×4 (06:20→23:34)
[2018-12-30] MEDS: NOREPINEPHRINE 4 MG in DEXT 5% WATER 246 ML IV PRN ×3 (08:04→20:59)
[2018-12-30] MEDS: LISINOPRIL 20MG TABLET PO SCH (08:26)
[2018-12-30] MEDS: DEXT 5%/0.45% NACL 1000ML 1,000 ML IV SCH ×2 (08:26→21:07)
[2018-12-30] MEDS: ASCORBIC ACID 250 MG TABLET PO SCH (09:00)
[2018-12-30 09:48] LABS: BG BASE EXCESS -5.9 mmol/L (-2.0-2.0); BG CARBOXYHEMOGLOBIN 0.3 % (0.5-1.5); BG DEOXYHEMOGLOBIN 2.6 % (0.0-5.0); BG FRACTION INSPIRED OXYGEN 80; BG HCO3 ACT 16.4 mmol/L (22.0-26.0); BG METHEMOGLOBIN 0.2 % (0.0-1.5); BG OXYGEN SATURATION 97.4 % (92.0-98.5); BG OXYHEMOGLOBIN 96.9 % (94.0-97.0); BG PCO2 22.9 mmHg (35.0-45.0); BG PH 7.473 (7.350-7.450); BG SAMPLE SITE RIGHT BRACHIAL; BG TIDAL VOLUME(mL) 550 mL; BG TOTAL HEMOGLOBIN 9.7 g/dL (12.0-18.0); BG VENT MODE VENT - A/C; BG VENT RATE 16 set
[2018-12-30] MEDS: ZINC SULFATE 220 MG ( 50 ) CAPSULE PO SCH (09:59)
[2018-12-30] MEDS: FAMOTIDINE 20MG TABLET PO SCH (09:59)
[2018-12-30] MEDS: LACTOBACILLUS GG CAPSULE PO SCH ×3 (09:59→22:17)
[2018-12-30] MEDS: LORAZEPAM 2MG/ML CPJ IV PRN ×4 (10:27→17:35)
[2018-12-30] MEDS ORDERED: PHENYLEPHRINE 10 MG in DEXT 5% WATER 249 ML IV PRN (11:00)
[2018-12-30] MEDS ORDERED: LACTULOSE 300 ML in WATER FOR IRRIGATION,STERILE 700 ML IR NR (12:00)
[2018-12-30] MEDS: RIFAXIMIN 550 MG TABLET PO SCH ×2 (12:06→22:17)
[2018-12-30] MEDS: LEVETIRACETAM 500 MG in SODIUM CHLORIDE 0.9% 100 ML IV SCH ×2 (13:22→21:07)
[2018-12-30 13:46] LABS: PLATELET ESTIMATE NORMAL
[2018-12-30 13:48] LABS: PLATELET 165 x1000/uL (130-400)
[2018-12-30] MEDS ORDERED: MICAFUNGIN 100 MG in SODIUM CHLORIDE 0.9% 100 ML IV SCH (15:00)
[2018-12-30] MEDS ORDERED: AMIKACIN 500MG in SODIUM CHLORIDE 0.9% 100ML IV NR (18:45)
[2018-12-30] MEDS ORDERED: NOREPINEPHRINE 32 MG in DEXT 5% WATER 468 ML IV PRN (21:00)
[2018-12-30] MEDS ORDERED: PHENYLEPHRINE 80 MG in DEXT 5% WATER 492 ML IV PRN (22:00)
[2018-12-30] MEDS: LACTULOSE 20G/30ML UDC PO SCH (22:17)
[2018-12-30] MEDS ORDERED: VANCOMYCIN 1250MG in DEXTROSE 5% WATER 250ML IV SCH (23:00)
[2018-12-30] MEDS ORDERED: VASOPRESSIN 10 UNIT in SODIUM CHLORIDE 0.9% 99.5 ML IV PRN (23:30)
[2018-12-31] VITALS (64 sets, daily range): BP systolic 58–153; BP diastolic 38–74
[2018-12-31] MEDS: IPRATROPIUM/ALBUTEROL 0.5-3(2.5)MG/3ML NEB HHN SCH ×3 (00:13→08:37)
[2018-12-31 04:47] LABS: CHLORIDE 105 mEq/L (98-107)
[2018-12-31 04:52] LABS: HEMOGLOBIN. 9.9 g/dL (14.0-18.0); MEAN CORPUSCULAR VOLUME 78.1 fL (80.0-94.0); RED BLOOD CELL COUNT 3.97 mill/uL (4.7-6.1); RED CELL DISTRIBUTION WIDTH 27.6 % (11.6-14.6)
[2018-12-31] MEDS: PREDNISONE 20MG TABLET PO SCH (05:40)
[2018-12-31] MEDS: LACTULOSE 20G/30ML UDC PO SCH (05:40)
[2018-12-31] MEDS: DEXT 5%/0.45% NACL 1000ML 1,000 ML IV SCH (05:40)
[2018-12-31] MEDS: PIPERACILLIN/TAZOBACTAM 2.25 G in DEXTROSE 5% WATER 50 ML IV SCH (05:40)
[2018-12-31] MEDS: LACTOBACILLUS GG CAPSULE PO SCH (05:41)
[2018-12-31] MEDS: INSULIN LISPRO 100 UNITS/ML SUBCUT SCH (06:00)
[2018-12-31] MEDS: BLOOD SUGAR DIAGNOSTIC STRIP TEST SCH (06:19)
[2018-12-31 09:36] LABS: PLATELET ESTIMATE DECREASED
[2018-12-31] MEDS: ASCORBIC ACID 250 MG TABLET PO SCH (10:09)
[2018-12-31] MEDS: FAMOTIDINE 20MG TABLET PO SCH (10:09)
[2018-12-31] MEDS: ZINC SULFATE 220 MG ( 50 ) CAPSULE PO SCH (10:09)
[2018-12-31] MEDS: LEVETIRACETAM 500 MG in SODIUM CHLORIDE 0.9% 100 ML IV SCH (10:09)
[2018-12-31] MEDS: RIFAXIMIN 550 MG TABLET PO SCH (10:09)
[2018-12-31] MEDS ORDERED: EPINEPHRINE 1 MG in SODIUM CHLORIDE 0.9% 249 ML IV PRN (11:00)
[2018-12-31] MEDS ORDERED: MORPHINE SULFATE 100 MG in DEXT 5% WATER 90 ML IV PRN (11:45)
[2018-12-31] MEDS ORDERED: PIPERACILLIN/TAZOBACTAM 2.25 G in DEXTROSE 5% WATER 50 ML IV SCH (14:00)
[2018-12-31] MEDS ORDERED: LACTULOSE 20G/30ML UDC NG SCH (14:00)
== END 2018-12-31 13:28 | disposition expired | DRG 710 ==
LOC: ER 04:17 → 5EST 05:29 → EDBEDREQSVC 05:35 → EDBEDREQTM 05:35 → EDBEDREQ 05:35 → ENRESERV 06:38 → 5EST 08:18 → CVICU 18:52 → 5WST 12-22 14:47 → 8WST 12-22 17:17 → MICUNO 12-29 21:10
PROVIDERS: ADMIT Internal Medicine; ATTEND Internal Medicine
PROC: 5A1955Z Respiratory Ventilation, Greater than 96 Consecutive Hours (ICD-10-PCS; principal; 2018-12-13)
PROC: 5A09357 Assistance with Respiratory Ventilation, Less than 24 Consecutive Hours, Continuous Positive Airway Pressure (ICD-10-PCS; 2018-12-13)
PROC: 0BH17EZ Insertion of Endotracheal Airway into Trachea, Via Natural or Artificial Opening (ICD-10-PCS; 2018-12-13)
PROC: 30233N1 Transfusion of Nonautologous Red Blood Cells into Peripheral Vein, Percutaneous Approach (ICD-10-PCS; 2018-12-14)
PROC: 3E0T3BZ Introduction of Anesthetic Agent into Peripheral Nerves and Plexi, Percutaneous Approach (ICD-10-PCS; 2018-12-19)
PROC: 0BBC8ZZ Excision of Right Upper Lung Lobe, Via Natural or Artificial Opening Endoscopic (ICD-10-PCS; 2018-12-19)
PROC: 30233K1 Transfusion of Nonautologous Frozen Plasma into Peripheral Vein, Percutaneous Approach (ICD-10-PCS; 2018-12-19)
PROC: 0W9940Z Drainage of Right Pleural Cavity with Drainage Device, Percutaneous Endoscopic Approach (ICD-10-PCS; 2018-12-19)
PROC: 0KBS0ZZ Excision of Right Lower Leg Muscle, Open Approach (ICD-10-PCS; 2018-12-20)
PROC: 0KBT0ZZ Excision of Left Lower Leg Muscle, Open Approach (ICD-10-PCS; 2018-12-20)
PROC: 02HV33Z Insertion of Infusion Device into Superior Vena Cava, Percutaneous Approach (ICD-10-PCS; 2018-12-28)
PROC: B548ZZA Ultrasonography of Superior Vena Cava, Guidance (ICD-10-PCS; 2018-12-28)
PROC: 0WB80ZZ Excision of Chest Wall, Open Approach (ICD-10-PCS; 2018-12-29)
DX: A41.9 Sepsis, unspecified organism (principal); J96.01 Acute respiratory failure with hypoxia; N17.0 Acute kidney failure with tubular necrosis; K72.00 Acute and subacute hepatic failure without coma; I46.9 Cardiac arrest, cause unspecified; E43 Unspecified severe protein-calorie malnutrition; G92 Toxic encephalopathy; A04.72 Enterocolitis due to Clostridium difficile, not specified as recurrent; J18.1 Lobar pneumonia, unspecified organism; R65.21 Severe sepsis with septic shock; E11.22 Type 2 diabetes mellitus with diabetic chronic kidney disease; N17.9 Acute kidney failure, unspecified; D68.9 Coagulation defect, unspecified; N18.3 Chronic kidney disease, stage 3 (moderate); I12.9 Hypertensive chronic kidney disease with stage 1 through stage 4 chronic kidney disease, or unspecified chronic kidney disease; Z86.14 Personal history of Methicillin resistant Staphylococcus aureus infection; D64.9 Anemia, unspecified; Z68.23 Body mass index [BMI] 23.0-23.9, adult; B37.81 Candidal esophagitis; D50.9 Iron deficiency anemia, unspecified; E11.43 Type 2 diabetes mellitus with diabetic autonomic (poly)neuropathy; E87.6 Hypokalemia; E87.8 Other disorders of electrolyte and fluid balance, not elsewhere classified; J84.116 Cryptogenic organizing pneumonia; J90 Pleural effusion, not elsewhere classified; K29.50 Unspecified chronic gastritis without bleeding; K31.84 Gastroparesis; K56.0 Paralytic ileus; L03.313 Cellulitis of chest wall; L81.6 Other disorders of diminished melanin formation; L89.90 Pressure ulcer of unspecified site, unspecified stage; N50.89 Other specified disorders of the male genital organs; R56.9 Unspecified convulsions; S81.811A Laceration without foreign body, right lower leg, initial encounter; T38.0X5A Adverse effect of glucocorticoids and synthetic analogues, initial encounter; Z51.5 Encounter for palliative care; Z66 Do not resuscitate; Z91.19 Patient's noncompliance with other medical treatment and regimen
CPT/HCPCS: 31500; 36415; 36600; 71045; 71250; 74018; 76700; 76770; 76870; 76937; 78580; 80048; 80061; 80076; 80150; 80202; 81003; 82010; 82140; 82248; 82375; 82550; 82805; 82962; 83605; 83735; 84100; 84134; 84145; 84478; 85014; 85018; 85027; 86705; 86709; 86803; 86850; 86900; 86920; 86927; 87015; 87045; 87070; 87075; 87077; 87106; 87186; 87340; 87389; 87427; 87449; 87493; 88307; 88312; 89055; 90686; 90715; 92610; 92950; 93005; 93971; 93976; 94002; 94003; 94640; 94660; 94667; 96365; 97110; 97116; 97161; 97164; 97166; 97530; 99285; A6261; C1752; C9113; J0278; J0330; J0360; J1100; J1170; J1642; J1815; J1953; J2060; J2185; J2248; J2250; J2270; J2370; J2405; J2543; J2704; J2710; J2765; J2930; J3010; J3370; J3475; J3480; J3490; J7040; J7050; J7060; J7070; J7131; J7512; J7608; J7620; J8597; P9016; P9017; A4315